=== PATIENT | male | born 1975 | race African-American/Black ===

== ENCOUNTER 2019-05-04 16:18 | Inpatient (IN) | payer OTHER ==
[2019-05-04 22:07] VITALS: BMI 22.8
--- NOTE | 2019-05-05 01:00 | HP ---
COWS - Scale Resting Pulse: 0= [place] 80 or Below Sweatin= No chills or Flushing Restless Observation: 0= Sits Still Pupil Size: 0= Normal to Room Light Bone or Joint Aches: 1= Mild Discomfort Runny Nose/ Eye Tearin= None GI Upset > 30mins: 0= None Tremor Observation: 0= None Yawning Observation: 0= None Anxiety or Irritability: 1=Feels Anxious/Irritable Goose Flesh Skin: 0=Smooth Skin COWS Score: 2 CIWA Score Nausea/Vomitin-No Nausea/No Vomiting Muscle Tremors: None Anxiety: 1-Mildly Anxious Agitation: 1-Slight > Activity Paroxysmal Sweats: No Perspiration Orientation: 0-Oriented Tacttile Disturbances: 0-None Auditory Disturbances: 0-None Visual Disturbances: 0-None Headache: 0-None Present CIWA-Ar Total Score: 2 - Admission Criteria OASAS Guidelines: Admission for Medically Managed Detox: Requires at least one of the followin. CIWA greater than 12 2. Seizures within the past 24 hours 3. Delirium tremens within the past 24 hours 4. Hallucinations within the past 24 hours 5. Acute intervention needed for co occurring medical disorder 6. Acute intervention needed for co occurring psychiatric disorder 7. Severe withdrawal that cannot be handled at a lower level of care (continued vomiting, continued diarrhea, abnormal vital signs) requiring intravenous medication and/or fluids 8. Admission ROS [facility] Chief Complaint: Here to get off heroin and k-2. Allergies/Adverse Reactions: Allergies Allergy/AdvReac Type Severity Reaction Status Date / Time No Known Allergies Allergy Verified 05/04/19 21:56 History of Present Illness: 44 yo presents with request for detox from heroin, K-2, and alcohol. Alcohol use began at age 16. States current use is 1 pint liquor and 1 40 oz beer daily. K-2 use began at age 43. States uses daily Heroin use began at age 43. Current use x 7 months. Current use 1-2 bags daily. Nasal Patient COWS & CIWA do not meet eligibility requirements for admission to detox. Patient is eligible for rehab, based on admission history. Nicotine use began at age 16. Current smokes 1/2 PPD. Denies seizures, blackouts, overdoses. PMHx: Fx foot 4 years ago w/ ORIF; MHHx: Depression. Insomnia. Denies thoughts of harming self or others. Does not see a MH Provider. Patient Name: Sean Brennan Date: 1975 Address: [address] [place] [address] Sex: Male Rx Written Rx Dispensed Drug Quantity Days Supply Prescriber Name 05/25/2018 05/26/2018 chlordiazepoxide 25 mg capsule 26 5 Shayne Murphy) Search Terms: Sean Brennan, 1975 Search Date: 05/05/2019 12:59:55 AM States Searched: [place], [place], [place], [place], [place], [place], [place], [place] The Drug Utilization Report below displays the controlled substance prescriptions, if any, that were dispensed in the indicated state(s). The information displayed on this report is compiled from requests submitted to other states' PMPs, and accurately reflects the information as returned by them. Blank segal indicate data not provided by other state. This report was requested by: Sarai Wakefield | Reference #: [id number] Exam Limitations: No Limitations - Ebola screening Have you traveled outside of the country in the last 21 days: No Have you had contact with anyone from an Ebola affected area: No Have you been sick,other than usual withdrawal symptoms: No (Denies recent exposure to measles) Do you have a fever: No - Review of Systems Constitutional: Changes in sleep (Difficulty falling and staying asleep) EENT: reports: Dental Problems (cavities and broken teeth. Chews and swallows ok.) Respiratory: reports: No Symptoms reported Cardiac: reports: Chest Pain (Intermittent chest pain x 2 years - evaluated w/o any findings.) GI: reports: No Symptoms Reported : reports: No Symptoms Reported Musculoskeletal: reports: Back Pain (Chronic low back achy/pins and needle pain x years. "8". Increases w/ sleeping. Improves with - states 'unknown') Integumentary: reports: No Symptoms Reported Neuro: reports: No Symptoms reported Endocrine: reports: No Symptoms Reported Hematology: reports: No Symptoms Reported Psychiatric: reports: Judgement Intact, Orientated x3, Agitated, Anxious, Depressed (Denies thoughts of harming self or others.) Patient History - PPD History Previous Implant?: No Documented Results: Negative w/o proof Implanted On Prior [facility] Admission?: No PPD to be Administered?: Yes - Smoking Cessation Smoking history: Current every day smoker Have you smoked in the past 12 months: No Aproximately how many cigarettes per day: 10 Hx Chewing Tobacco Use: No Initiated information on smoking cessation: Yes 'Breaking Loose' booklet given: 05/05/19 - Substance & Tx. History Hx Alcohol Use: Yes Hx Substance Use: Yes Substance Use Type: Alcohol, Cocaine, Heroin Hx Substance Use Treatment: Yes (detox, rehab ) - Substances abused Heroin Substance route: Inhalation Frequency: 3-6 times per week Amount used: 1-2 bags/day Age of first use: 16 Date of last use: 05/03/19 K2/Spice Substance route: Smoking Frequency: Daily Amount used: 10 blunts/day Age of first use: 43 Date of last use: 05/04/19 Alcohol Substance route: Oral Frequency: Daily Amount used: 1 40 ounce, 1 pint Age of first use: 16 Date of last use: 05/03/19 Admission Physical Exam S - Vital Signs Vital Signs: Vital Signs - 24 hr 05/04/19 05/04/19 21:59 22:57 Temperature 97.1 F L 97.1 F L Pulse Rate 49 L 49 L Respiratory 16 16 Rate Blood Pressure 112/70 112/70 - Physical General Appearance: Yes: Anxious HEENTM: Yes: EOMI, Hearing grossly Normal, Normocephalic, Normal Voice, MAXIMINO ( Pupils = 2 mm), Pharynx Normal Respiratory: Yes: Lungs Clear, Normal Breath Sounds, No Respiratory Distress Neck: Yes: No masses,lesions,Nodules, Supple Breast: Yes: Breast Exam Deferred Cardiology: Yes: Regular Rhythm, S1, S2, Bradycardia (HR: 46. Denies SOB. No edema.) Abdominal: Yes: Non Tender, Flat, Soft, Increased Bowel Sounds Genitourinary: Yes: Within Normal Limits Back: Yes: Normal Inspection Musculoskeletal: Yes: full range of Motion, Gait Steady Extremities: Yes: Normal Capillary Refill, Normal Range of Motion Neurological: Yes: manager cardiovascular II-XII NML intact, Fully Oriented, Alert, Motor Strength 5/5, Normal Response Integumentary: Yes: Normal Color, Warm, Other (Thickened, moist tissues between toes (L) foot w/ musty odor. Dry, cracked skin (R) foot and toes.) Lymphatic: Yes: Within Normal Limits - Diagnostic (1) History of foot fracture Current Visit: Yes Status: Chronic (2) Alcohol use disorder Current Visit: Yes Status: Chronic (3) Cocaine abuse Current Visit: Yes Status: Chronic (4) Uncomplicated opioid abuse Current Visit: Yes Status: Chronic (5) Tinea pedis Current Visit: Yes Status: Chronic Qualifiers: Laterality: bilateral Qualified Code(s): B35.3 - Tinea pedis (6) Bradycardia Current Visit: Yes Status: Chronic (7) Nicotine dependence, uncomplicated Current Visit: Yes Status: Chronic Qualifiers: Nicotine product type: cigarettes Qualified Code(s): F17.210 - Nicotine dependence, cigarettes, uncomplicated (8) Insomnia Current Visit: Yes Status: Chronic Qualifiers: Insomnia type: unspecified Qualified Code(s): G47.00 - Insomnia, unspecified Cleared for Admission [facility] - Detox or Rehab Claeared for Rehab Admission: Yes Breathalyzer - Breathalyzer Breathalyzer: 0 Urine Drug Screen - Test Device Lot number: [id number] Expiration date: 02/24/21 - Control Is test valid?: Yes - Results Drug screen NEGATIVE: No Urine drug screen results: THC-Marijuana, MECHE-Cocaine, MOP-Opiates Inpatient Rehab Admission - Rehab Decision to Admit Inpatient rehab admission?: Yes - Initial Determination Are CD services needed?: Yes Free of communicable disease: Yes Not in need of hospitalization: Yes - Rehab Admission Criteria Previous failed treatment: Yes Poor recovery environment: Yes Comorbidities: Yes Lacks judgement: No Patient is meeting Inpatient Rehab admission criteria:: Yes
[2019-05-05] MEDS ORDERED: IBUPROFEN 400 MG TABLET (FP) PO PRN (01:33)
[2019-05-05] MEDS ORDERED: P-EPHED 60MG/TRIPROLIDI 2.5MG TABLET PO PRN (01:33)
[2019-05-05] MEDS ORDERED: guaiFENesin 200 MG/10 ML 10 ML UNIT-DOSE CUPS PO PRN (01:33)
[2019-05-05] MEDS ORDERED: LOPERAMIDE HCL 2 MG CAPSULE PO PRN (01:33)
[2019-05-05] MEDS ORDERED: MAGNESIUM HYDROX 2400MG/30ML ORAL SUSPENSION 30 ML CUP PO PRN (01:33)
[2019-05-05] MEDS ORDERED: MENTHOL/PHENOL 1 EACH UD MM PRN (01:33)
[2019-05-05] MEDS ORDERED: MAG HYDROX/AL HYDROX/SIMETH 30 ML UNIT-DOSE CUP PO PRN (01:33)
[2019-05-05] MEDS ORDERED: MAGNESIUM CITRATE 300 ML BOTTLE PO PRN (01:33)
[2019-05-05] MEDS ORDERED: ACETAMINOPHEN 325 MG TABLET (FP) PO PRN (01:33)
[2019-05-05] MEDS ORDERED: cloNIDine HCL 0.1 MG TABLET PO PRN (01:36)
[2019-05-05] MEDS: QUEtiapine FUMARATE 50 MG TABLET PO SCH ×2 (03:54→21:45)
[2019-05-05] MEDS: TOLNAFTATE 1% CREAM 15 GM TUBE TP SCH ×2 (11:01→21:44)
[2019-05-05] MEDS: PRENATAL VITAMINS W/ FOLIC ACID TABLET (FP) PO SCH (11:01)
[2019-05-05] MEDS: NICOTINE 14 MG/24 HOURS TOPICAL PATCH TD SCH (11:03)
[2019-05-05 12:21] LABS: HEMATOCRIT 46.3 % (35.4-49); HEMOGLOBIN 15.8 GM/dL (11.7-16.9); MCH 30.4 pg (25.7-33.7); MCHC 34.1 g/dl (32.0-35.9); MEAN CELL VOLUME 89.3 fl (80-96); MEAN PLT VOLUME 10.1 fl (7.5-11.1); PLATELET COUNT 122 K/MM3 (134-434); RBC 5.19 M/mm3 (4.00-5.60); RDW 13.4 % (11.9-15.9); WHITE BLOOD COUNT 4.5 K/mm3 (4.0-10.0)
[2019-05-05 12:40] LABS: PH,URINE 7.5 (5.0-8.0); URINE APPEARANCE CLOUDY; URINE BILIRUBIN NEGATIVE (NEGATIVE); URINE COLOR YELLOW; URINE GLUCOSE (UA) NEGATIVE (NEGATIVE); URINE KETONE NEGATIVE (NEGATIVE); URINE LEUK ESTERASE NEGATIVE (NEGATIVE); URINE NITRITE NEGATIVE (NEGATIVE); URINE PROTEIN NEGATIVE (NEGATIVE); URINE UROBILINOGEN 0.2 mg/dL (0.2-1.0)
[2019-05-05 12:58] LABS: ALBUMIN 3.6 g/dl (3.4-5.0); BILIRUBIN,TOTAL 0.4 mg/dL (0.2-1); BLOOD UREA NITROGEN 10.3 mg/dL (7-18); CALCIUM 9.1 mg/dL (8.5-10.1); TOT PROT 6.7 g/dl (6.4-8.2)
--- NOTE | 2019-05-05 14:34 | EKG ---
Test Reason : Blood Pressure : / mmHG Vent. Rate : 044 BPM Atrial Rate : 044 BPM P-R Int : 130 ms QRS Dur : 084 ms QT Int : 466 ms P-R-T Axes : 044 030 031 degrees QTc Int : 398 ms MARKED SINUS BRADYCARDIA ABNORMAL ECG NO PREVIOUS ECGS AVAILABLE Confirmed by Robin Drake ([id number]) on 05/05/2019 2:34:14 PM Referred By: Confirmed By:Robin Drake
[2019-05-05] MEDS: THIAMINE HCL 100 MG TABLET (FP) PO SCH (21:45)
--- NOTE | 2019-05-06 10:21 | CONSULT ---
[facility] Psychiatric Consult - Data Date of interview: 05/06/19 Admission source: Self-referred Identifying data: Mr Brennan is a 44 years old single Black male, father of 4 children, unemployed with no source of income, homeless seeking rehab treatment for alcohol, opioid and synthetic cannabis Substance Abuse History: Reports history of alcohol, heroin and k2 use. Refer to addiction counselor's summary for further information Medical History: Significant for history of orthosurgery for fracture foot 4-6 years ago. Smokes 10 cigarettes daily Psychiatric History: Denies history of previous psychiatric treatment. However, reports sleeping poorly. 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 No service Additional Comment: Reports history of multiple misdemeanor arrests. Denies being on probation at present Mental Status Exam - Mental Status Exam Alert and Oriented to: Time, Place, Person Cognitive Function: Fair Patient Appearance: Well Groomed Mood: Depressed (mildly) Patient Behavior: Cooperative Speech Pattern: Clear Voice Loudness: Normal Thought Process: Flight of Ideas Thought Disorder: Not Present Hallucinations: Denies Suicidal Ideation: Denies Homicidal Ideation: Denies Insight/Judgement: Poor Sleep: Well Appetite: Good Psychiatric Findings - Problem List ([place] 1, 2,3) (1) Substance induced mood disorder Current Visit: Yes Status: Acute (2) Substance-induced sleep disorder Current Visit: Yes Status: Acute (3) Alcohol dependence Current Visit: Yes Status: Acute (4) Opioid dependence Current Visit: Yes Status: Acute (5) Cannabis dependence Current Visit: Yes Status: Acute (6) Nicotine dependence Current Visit: Yes Status: Chronic (7) History of foot fracture Current Visit: Yes Status: Resolved - Initial Treatment Plan Initial Treatment Plan: 1) Continue Melatonin 5 mg po HS prn for insomnia. 2) Continue inpatient detoxification
[2019-05-06] MEDS: TOLNAFTATE 1% CREAM 15 GM TUBE TP SCH ×2 (10:47→21:35)
[2019-05-06] MEDS: PRENATAL VITAMINS W/ FOLIC ACID TABLET (FP) PO SCH (10:47)
[2019-05-06] MEDS: NICOTINE 14 MG/24 HOURS TOPICAL PATCH TD SCH (10:47)
[2019-05-06] MEDS: NICOTINE POLACRILEX 2 MG GUM BC PRN (17:47)
[2019-05-06] MEDS: MELATONIN 5 MG TABLETS PO PRN (21:33)
[2019-05-06] MEDS: QUEtiapine FUMARATE 50 MG TABLET PO SCH (21:33)
[2019-05-06] MEDS: NAPROXEN 500 MG TABLET (FP) PO PRN (21:34)
[2019-05-06] MEDS: THIAMINE HCL 100 MG TABLET (FP) PO SCH (21:34)
[2019-05-07] MEDS: PRENATAL VITAMINS W/ FOLIC ACID TABLET (FP) PO SCH (10:27)
[2019-05-07] MEDS: NICOTINE 14 MG/24 HOURS TOPICAL PATCH TD SCH (10:28)
[2019-05-07] MEDS: TOLNAFTATE 1% CREAM 15 GM TUBE TP SCH ×2 (10:29→22:03)
[2019-05-07] MEDS: NICOTINE POLACRILEX 2 MG GUM BC PRN ×2 (19:33→22:13)
[2019-05-07] MEDS: NAPROXEN 500 MG TABLET (FP) PO PRN (21:25)
[2019-05-07] MEDS: QUEtiapine FUMARATE 50 MG TABLET PO SCH (21:25)
[2019-05-07] MEDS: THIAMINE HCL 100 MG TABLET (FP) PO SCH (21:25)
[2019-05-07] MEDS: MELATONIN 5 MG TABLETS PO PRN (21:25)
[2019-05-08] MEDS: NICOTINE 14 MG/24 HOURS TOPICAL PATCH TD SCH (10:26)
[2019-05-08] MEDS: PRENATAL VITAMINS W/ FOLIC ACID TABLET (FP) PO SCH (10:26)
[2019-05-08] MEDS: TOLNAFTATE 1% CREAM 15 GM TUBE TP SCH ×2 (10:27→21:45)
[2019-05-08] MEDS: THIAMINE HCL 100 MG TABLET (FP) PO SCH (21:45)
[2019-05-08] MEDS: QUEtiapine FUMARATE 50 MG TABLET PO SCH (21:45)
[2019-05-08] MEDS: MELATONIN 5 MG TABLETS PO PRN (21:45)
[2019-05-09] MEDS: PRENATAL VITAMINS W/ FOLIC ACID TABLET (FP) PO SCH (10:17)
[2019-05-09] MEDS: NICOTINE 14 MG/24 HOURS TOPICAL PATCH TD SCH (10:18)
[2019-05-09] MEDS: TOLNAFTATE 1% CREAM 15 GM TUBE TP SCH ×2 (10:18→23:24)
[2019-05-09] MEDS: NICOTINE POLACRILEX 2 MG GUM BC PRN (10:19)
[2019-05-09] MEDS: THIAMINE HCL 100 MG TABLET (FP) PO SCH (22:06)
[2019-05-09] MEDS: QUEtiapine FUMARATE 50 MG TABLET PO SCH (22:06)
[2019-05-09] MEDS: MELATONIN 5 MG TABLETS PO PRN (22:07)
[2019-05-10] MEDS: NICOTINE 14 MG/24 HOURS TOPICAL PATCH TD SCH (10:32)
[2019-05-10] MEDS: TOLNAFTATE 1% CREAM 15 GM TUBE TP SCH ×2 (10:32→21:46)
[2019-05-10] MEDS: NICOTINE POLACRILEX 2 MG GUM BC PRN ×2 (10:32→18:40)
[2019-05-10] MEDS: PRENATAL VITAMINS W/ FOLIC ACID TABLET (FP) PO SCH (10:32)
[2019-05-10] MEDS: THIAMINE HCL 100 MG TABLET (FP) PO SCH (21:46)
[2019-05-10] MEDS: QUEtiapine FUMARATE 50 MG TABLET PO SCH (21:46)
[2019-05-10] MEDS: MELATONIN 5 MG TABLETS PO PRN (21:46)
[2019-05-11] MEDS: NAPROXEN 500 MG TABLET (FP) PO PRN (09:27)
[2019-05-11] MEDS: NICOTINE 14 MG/24 HOURS TOPICAL PATCH TD SCH (09:28)
[2019-05-11] MEDS: PRENATAL VITAMINS W/ FOLIC ACID TABLET (FP) PO SCH (09:29)
[2019-05-11] MEDS: TOLNAFTATE 1% CREAM 15 GM TUBE TP SCH ×2 (10:36→21:33)
--- NOTE | 2019-05-11 16:09 | PN ---
[facility] Progress Note Note: Met with patient today Re:MAT. pt declined stating he is not ready for treatment with MAT-suboxone. Vital Signs - 24 hr 05/11/19 05/11/19 05/11/19 00:30 03:30 06:49 Temperature 97.6 F Pulse Rate 52 L Respiratory 18 18 16 Rate Blood Pressure 100/58 L Laboratory Tests 05/05/19 05/05/19 05/05/19 08:10 08:10 08:10 WBC 4.5 RBC 5.19 Hgb 15.8 Hct 46.3 MCV 89.3 MCH 30.4 MCHC 34.1 RDW 13.4 Plt Count 122 L MPV 10.1 Sodium 142 Potassium 4.0 Chloride 108 H Carbon Dioxide 27 Anion Gap 6 L BUN 10.3 Creatinine 1.0 Est GFR (CKD-EPI)AfAm 106.36 Est GFR (CKD-EPI)NonAf 91.77 Random Glucose 70 L Calcium 9.1 Total Bilirubin 0.4 AST 26 ALT 28 Alkaline Phosphatase 57 Total Protein 6.7 Albumin 3.6 Urine Color Urine Appearance Urine pH Ur Specific [place] Urine Protein Urine Glucose (UA) Urine Ketones Urine Blood Urine Nitrite Urine Bilirubin Urine Urobilinogen Ur Leukocyte Esterase RPR Titer Nonreactive 05/05/19 09:10 WBC RBC Hgb Hct MCV MCH MCHC RDW Plt Count MPV Sodium Potassium Chloride Carbon Dioxide Anion Gap BUN Creatinine Est GFR (CKD-EPI)AfAm Est GFR (CKD-EPI)NonAf Random Glucose Calcium Total Bilirubin AST ALT Alkaline Phosphatase Total Protein Albumin Urine Color Yellow Urine Appearance Cloudy Urine pH 7.5 Ur Specific [place] 1.018 Urine Protein Negative Urine Glucose (UA) Negative Urine Ketones Negative Urine Blood Negative Urine Nitrite Negative Urine Bilirubin Negative Urine Urobilinogen 0.2 Ur Leukocyte Esterase Negative RPR Titer Plan:Pt instructed to inform provider if and when ready while here in rehab.
[2019-05-11] MEDS: NICOTINE POLACRILEX 2 MG GUM BC PRN (18:45)
[2019-05-11] MEDS: QUEtiapine FUMARATE 50 MG TABLET PO SCH (21:32)
[2019-05-11] MEDS: THIAMINE HCL 100 MG TABLET (FP) PO SCH (21:32)
[2019-05-11] MEDS: MELATONIN 5 MG TABLETS PO PRN (21:32)
[2019-05-12] MEDS: PRENATAL VITAMINS W/ FOLIC ACID TABLET (FP) PO SCH (10:07)
[2019-05-12] MEDS: NICOTINE POLACRILEX 2 MG GUM BC PRN (10:07)
[2019-05-12] MEDS: TOLNAFTATE 1% CREAM 15 GM TUBE TP SCH ×2 (10:07→21:36)
[2019-05-12] MEDS: NICOTINE 14 MG/24 HOURS TOPICAL PATCH TD SCH (10:07)
[2019-05-12] MEDS: THIAMINE HCL 100 MG TABLET (FP) PO SCH (21:35)
[2019-05-12] MEDS: QUEtiapine FUMARATE 50 MG TABLET PO SCH (21:36)
[2019-05-13] MEDS: NICOTINE 14 MG/24 HOURS TOPICAL PATCH TD SCH (10:30)
[2019-05-13] MEDS: PRENATAL VITAMINS W/ FOLIC ACID TABLET (FP) PO SCH (10:30)
[2019-05-13] MEDS: TOLNAFTATE 1% CREAM 15 GM TUBE TP SCH ×2 (10:31→21:39)
[2019-05-13] MEDS: NAPROXEN 500 MG TABLET (FP) PO PRN ×2 (10:31→21:38)
[2019-05-13] MEDS: QUEtiapine FUMARATE 50 MG TABLET PO SCH (21:38)
[2019-05-13] MEDS: THIAMINE HCL 100 MG TABLET (FP) PO SCH (21:38)
[2019-05-13] MEDS: MELATONIN 5 MG TABLETS PO PRN (21:38)
[2019-05-13] MEDS: hydrOXYzine PAMOATE 50 MG CAPSULE (FP) PO PRN (21:38)
[2019-05-14] MEDS: PRENATAL VITAMINS W/ FOLIC ACID TABLET (FP) PO SCH (10:23)
[2019-05-14] MEDS: TOLNAFTATE 1% CREAM 15 GM TUBE TP SCH ×2 (10:23→21:44)
[2019-05-14] MEDS: NICOTINE 14 MG/24 HOURS TOPICAL PATCH TD SCH (10:23)
[2019-05-14] MEDS: NICOTINE POLACRILEX 2 MG GUM BC PRN (10:24)
--- NOTE | 2019-05-14 15:14 | PN ---
S Progress Note Note: Nurse reports pt requesting Catscan of his head. Pt was asked by technical writer and editor why he needs catscan and pt responded "i don't know what's wrong with my head". Pt was educated on indications for catscan testings. Pt denies any form injury. Pt also requesting increased seroquel dose and wants to speak to psych on how he is feeling in his head. Pt was very vague and unable to express the feelings but also c/o intermittent sleep. However, pt is alert o x 3, calm and communicates pleasantly. denies s/h/i. Vital Signs - 24 hr 05/14/19 05/14/19 03:30 07:07 Temperature 97.4 F L Pulse Rate 54 L Respiratory 18 18 Rate Blood Pressure 114/62 A:Sleeping problems hx insomnia hx depression plan:psych re-eval today re-ordered.
--- NOTE | 2019-05-14 16:04 | PN ---
Psychiatric Progress Note Vital Signs: Vital Signs Period Temp Pulse Resp BP Sys/Olivier Pulse Ox Last 24 Hr 97.4 F 54 18-18 114/62 Date of Session: 05/14/19 Chief Complaint:: " I'm not sleeping well." HPI: Patient admitted to [facility] rehab treatment for alcohol, opioid and synthetic cannabis. Patient reports difficulty sleeping. ROS: Patient is coherent, alert and oriented X3. Current Medications: Active Medications Generic Name Dose Route Start Last Admin Trade Name Freq PRN Reason Stop Dose Admin Acetaminophen 650 mg 05/05/19 01:33 Tylenol - PO Q4H PRN FEVER Al Hydroxide/Mg Hydroxide 30 ml 05/05/19 01:33 Mylanta Oral Suspension - PO Q6H PRN DYSPEPSIA Clonidine 0.1 mg 05/05/19 01:36 Catapres - PO Q8H PRN WITHDRAWAL(CONT SUBST) Eucalyptus/Menthol/Phenol/Sorbitol 1 each 05/05/19 01:33 Cepastat Lozenge - MM Q4H PRN SORE THROAT Guaifenesin 10 ml 05/05/19 01:33 Robitussin - PO Q6H PRN COUGH Hydroxyzine Pamoate 50 mg 05/05/19 01:33 05/13/19 21:38 Vistaril - PO 50 mg Q4H PRN Administration AGITATION Loperamide HCl 4 mg 05/05/19 01:33 Imodium - PO Q6H PRN DIARRHEA Magnesium Citrate 300 ml 05/05/19 01:33 Citroma - PO Q48H PRN CONSTIPATION Magnesium Hydroxide 30 ml 05/05/19 01:33 Milk Of Magnesia - PO DAILY PRN CONSTIPATION Melatonin 5 mg 05/05/19 22:00 05/13/19 21:38 Melatonin PO 5 mg HS PRN Administration INSOMNIA Naproxen 500 mg 05/05/19 02:12 05/13/19 21:38 Naprosyn - PO 500 mg BID PRN Administration PAIN LEVEL 6-10 Nicotine 14 mg 05/05/19 10:00 05/14/19 10:23 Nicoderm Patch - TD Not Given DAILY BRIANA Nicotine Polacrilex 2 mg 05/05/19 01:33 05/14/19 10:24 Nicorette Gum - BC 2 mg Q2H PRN Administration NICOTINE REPLACEMENT RX Multivit/Folic Acid/Iron 1 tab 05/05/19 10:00 05/14/19 10:23 Vitamins ([facility]) - PO 1 tab DAILY BRIANA Administration Pseudoephedrine/Triprolidine 1 combo 05/05/19 01:33 Actifed - PO TID PRN NASAL CONGESTION Quetiapine Fumarate 50 mg 05/05/19 01:39 05/13/19 21:38 Seroquel - PO 50 mg HS BRIANA Administration Thiamine HCl 100 mg 05/05/19 22:00 05/13/19 21:38 Vitamin B1 - PO 100 mg HS BRIANA Administration Tolnaftate 1 applic 05/05/19 10:00 05/14/19 10:23 Tinactin 1% Cream - TP Not Given BID BRIANA Medication(s) Change(s): Yes. Will d/c seroquel 50mg HS. Will order seroquel 100mg HS. Benefits and side effects discussed. Verbal consent given. Current Side Effect: No Lab tests ordered: No Lab tests reviewed: Yes Provider note:: Patient reports difficulty sleeping. Dr. Russell's note read and appreciated. Patient is currently receiving seroquel 50mg for insomnia but reports difficulty sleeping through the night. Will d/c seroquel 50mg HS and will order seroquel 100mg HS. Patient educated on the importance of sleep hygiene. Benefits and side effects discussed. Verbal consent given. Total face to face time:: 25 Mental Status Exam - Mental Status Exam Alert and Oriented to: Time, Place, Person Cognitive Function: Good Patient Appearance: Well Groomed Mood: Withdrawn Affect: Mood Congruent Patient Behavior: Fatigued (Patient report poor sleep.) Speech Pattern: Appropriate Voice Loudness: Normal Thought Process: Goal Oriented Thought Disorder: Not Present Hallucinations: Denies Suicidal Ideation: Denies Homicidal Ideation: Denies Insight/Judgement: Poor Sleep: Poorly Appetite: Fair Muscle strength/Tone: Normal Gait/Station: Normal Psychiatric Treatment Plan - Problem List (1) Nicotine dependence Current Visit: Yes (2) Alcohol dependence Current Visit: Yes (3) Cannabis dependence Current Visit: Yes (4) Opioid dependence Current Visit: Yes (5) Substance induced mood disorder Current Visit: Yes (6) Substance-induced sleep disorder Current Visit: Yes
[2019-05-14] MEDS: THIAMINE HCL 100 MG TABLET (FP) PO SCH (21:43)
[2019-05-14] MEDS: NAPROXEN 500 MG TABLET (FP) PO PRN (21:43)
[2019-05-14] MEDS: hydrOXYzine PAMOATE 50 MG CAPSULE (FP) PO PRN (21:43)
[2019-05-14] MEDS: QUEtiapine FUMARATE 100 MG TABLET (FP) PO SCH (21:44)
[2019-05-14] MEDS: MELATONIN 5 MG TABLETS PO PRN (21:45)
[2019-05-15] MEDS: PRENATAL VITAMINS W/ FOLIC ACID TABLET (FP) PO SCH (10:14)
[2019-05-15] MEDS: NICOTINE 14 MG/24 HOURS TOPICAL PATCH TD SCH (10:14)
[2019-05-15] MEDS: TOLNAFTATE 1% CREAM 15 GM TUBE TP SCH ×2 (10:14→21:28)
[2019-05-15] MEDS: NICOTINE POLACRILEX 2 MG GUM BC PRN ×2 (10:14→19:16)
--- NOTE | 2019-05-15 14:55 | PN ---
[facility] Progress Note Note: PT WAS SEEN AGAIN TODAY AND SPOKEN TO RE:BENEFIT OF GIVEN SUBOXONE A TRY AND FOLLOW UP REFERRAL TO [facility] WITH HIS COUNSELOR PRESENT. PT IS STILL HESITANT TO START SUBOXONE STATING "I WANT TO STOP EVERYTHING AND I DON'T LIKE GOING TO THE PROGRAMS BECAUSE THEY TALK ABOUT THE SAME THING". Vital Signs - 24 hr 05/15/19 05/15/19 05/15/19 00:30 03:30 06:44 Temperature 97.3 F L Pulse Rate 62 Respiratory 18 18 16 Rate Blood Pressure 100/59 L Laboratory Tests 05/05/19 05/05/19 05/05/19 08:10 08:10 08:10 WBC 4.5 RBC 5.19 Hgb 15.8 Hct 46.3 MCV 89.3 MCH 30.4 MCHC 34.1 RDW 13.4 Plt Count 122 L MPV 10.1 Sodium 142 Potassium 4.0 Chloride 108 H Carbon Dioxide 27 Anion Gap 6 L BUN 10.3 Creatinine 1.0 Est GFR (CKD-EPI)AfAm 106.36 Est GFR (CKD-EPI)NonAf 91.77 Random Glucose 70 L Calcium 9.1 Total Bilirubin 0.4 AST 26 ALT 28 Alkaline Phosphatase 57 Total Protein 6.7 Albumin 3.6 Urine Color Urine Appearance Urine pH Ur Specific [place] Urine Protein Urine Glucose (UA) Urine Ketones Urine Blood Urine Nitrite Urine Bilirubin Urine Urobilinogen Ur Leukocyte Esterase RPR Titer Nonreactive 05/05/19 09:10 WBC RBC Hgb Hct MCV MCH MCHC RDW Plt Count MPV Sodium Potassium Chloride Carbon Dioxide Anion Gap BUN Creatinine Est GFR (CKD-EPI)AfAm Est GFR (CKD-EPI)NonAf Random Glucose Calcium Total Bilirubin AST ALT Alkaline Phosphatase Total Protein Albumin Urine Color Yellow Urine Appearance Cloudy Urine pH 7.5 Ur Specific [place] 1.018 Urine Protein Negative Urine Glucose (UA) Negative Urine Ketones Negative Urine Blood Negative Urine Nitrite Negative Urine Bilirubin Negative Urine Urobilinogen 0.2 Ur Leukocyte Esterase Negative RPR Titer ALERT O X 3 OOB AMBULATES WITH STEADY GAIT NAD A:OUD INDECISIVENESS PLAN:D/W PT WITH PAYABLE MANAGER, DR. HOFFMAN TO FOLLOW UP AT [facility] FOR AFTERCARE ON 05/18/19. REMINDED PT SUBOXONE OR METHADONE MAT AVAILABLE AT [facility] OPD IF CHANGE HIS MIND AFTER DISCHARGE.
[2019-05-15] MEDS: THIAMINE HCL 100 MG TABLET (FP) PO SCH (21:27)
[2019-05-15] MEDS: MELATONIN 5 MG TABLETS PO PRN (21:28)
[2019-05-15] MEDS: QUEtiapine FUMARATE 100 MG TABLET (FP) PO SCH (21:28)
[2019-05-15] MEDS: hydrOXYzine PAMOATE 50 MG CAPSULE (FP) PO PRN (21:29)
[2019-05-16] MEDS: PRENATAL VITAMINS W/ FOLIC ACID TABLET (FP) PO SCH (09:43)
[2019-05-16] MEDS: NICOTINE 14 MG/24 HOURS TOPICAL PATCH TD SCH (09:43)
[2019-05-16] MEDS: TOLNAFTATE 1% CREAM 15 GM TUBE TP SCH ×2 (09:43→21:15)
[2019-05-16] MEDS: NICOTINE POLACRILEX 2 MG GUM BC PRN (09:44)
[2019-05-16] MEDS: THIAMINE HCL 100 MG TABLET (FP) PO SCH (21:14)
[2019-05-16] MEDS: MELATONIN 5 MG TABLETS PO PRN (21:14)
[2019-05-16] MEDS: QUEtiapine FUMARATE 100 MG TABLET (FP) PO SCH (21:14)
[2019-05-16] MEDS: hydrOXYzine PAMOATE 50 MG CAPSULE (FP) PO PRN (21:18)
[2019-05-17] MEDS: TOLNAFTATE 1% CREAM 15 GM TUBE TP SCH ×2 (10:09→21:28)
[2019-05-17] MEDS: NICOTINE POLACRILEX 2 MG GUM BC PRN (10:09)
[2019-05-17] MEDS: NICOTINE 14 MG/24 HOURS TOPICAL PATCH TD SCH (10:09)
[2019-05-17] MEDS: PRENATAL VITAMINS W/ FOLIC ACID TABLET (FP) PO SCH (10:09)
[2019-05-17] MEDS: THIAMINE HCL 100 MG TABLET (FP) PO SCH (21:27)
[2019-05-17] MEDS: QUEtiapine FUMARATE 100 MG TABLET (FP) PO SCH (21:27)
[2019-05-17] MEDS: hydrOXYzine PAMOATE 50 MG CAPSULE (FP) PO PRN (21:28)
[2019-05-17] MEDS: MELATONIN 5 MG TABLETS PO PRN (21:29)
--- NOTE | 2019-05-18 06:46 | PN ---
[facility] Progress Note Note: Patient is scheduled for discharge today. Script for 30 days supply of Seroquel 100 mg/hs is electronically transmitted to [facility] Pharmacy at [address] [place] [address] Sara, [place] [address]
[2019-05-18 07:17] VITALS: BP 90/52; PULSE 59; TEMP 97.7
[2019-05-18] MEDS: PRENATAL VITAMINS W/ FOLIC ACID TABLET (FP) PO SCH (09:12)
[2019-05-18] MEDS: TOLNAFTATE 1% CREAM 15 GM TUBE TP SCH (09:12)
[2019-05-18] MEDS: NICOTINE 14 MG/24 HOURS TOPICAL PATCH TD SCH (09:12)
[2019-05-18] MEDS: NICOTINE POLACRILEX 2 MG GUM BC PRN (09:13)
--- NOTE | 2019-05-18 15:57 | PN ---
[facility] Progress Note (SOAP) Subjective: PT ADMITTED ON 05/05/19, COMPLETED REHAB AND DISCHARGED TODAY. PT PARTICIPATED IN GROUPS AND INDIVIDUAL THERAPY WHILE IN REHAB. PT MET WITH HIS COUNSELOR, MS ANA MORTENSENShahramLANCE AND DISCUSSED FURTHER PLANNING AND NEED TO FOLLOW UP WITH MAT AT [facility] AFTER DISCHARGE. PT REPORTS HE HAS NO PCP. PT HAS BEEN REFERRED TO [facility] ON [address] FOR MEDICAL MANAGEMENT NEEDED. PT DENIES S/H/I. Objective: 05/18/19 15:54 ALERT O X 3 AMBULATES WITH STEADY GAIT. Vital Signs - 24 hr 05/18/19 05/18/19 05/18/19 00:30 03:30 07:16 Temperature 97.7 F Pulse Rate 59 L Respiratory 18 18 18 Rate Blood Pressure 90/52 L Laboratory Tests 05/05/19 05/05/19 05/05/19 08:10 08:10 08:10 WBC 4.5 RBC 5.19 Hgb 15.8 Hct 46.3 MCV 89.3 MCH 30.4 MCHC 34.1 RDW 13.4 Plt Count 122 L MPV 10.1 Sodium 142 Potassium 4.0 Chloride 108 H Carbon Dioxide 27 Anion Gap 6 L BUN 10.3 Creatinine 1.0 Est GFR (CKD-EPI)AfAm 106.36 Est GFR (CKD-EPI)NonAf 91.77 Random Glucose 70 L Calcium 9.1 Total Bilirubin 0.4 AST 26 ALT 28 Alkaline Phosphatase 57 Total Protein 6.7 Albumin 3.6 Urine Color Urine Appearance Urine pH Ur Specific [place] Urine Protein Urine Glucose (UA) Urine Ketones Urine Blood Urine Nitrite Urine Bilirubin Urine Urobilinogen Ur Leukocyte Esterase RPR Titer Nonreactive 05/05/19 09:10 WBC RBC Hgb Hct MCV MCH MCHC RDW Plt Count MPV Sodium Potassium Chloride Carbon Dioxide Anion Gap BUN Creatinine Est GFR (CKD-EPI)AfAm Est GFR (CKD-EPI)NonAf Random Glucose Calcium Total Bilirubin AST ALT Alkaline Phosphatase Total Protein Albumin Urine Color Yellow Urine Appearance Cloudy Urine pH 7.5 Ur Specific [place] 1.018 Urine Protein Negative Urine Glucose (UA) Negative Urine Ketones Negative Urine Blood Negative Urine Nitrite Negative Urine Bilirubin Negative Urine Urobilinogen 0.2 Ur Leukocyte Esterase Negative RPR Titer Home Medications Medication Instructions Recorded Quetiapine Fumarate [Seroquel] 100 mg PO HS #30 tablet 05/18/19 Assessment: 05/18/19 15:55 NAD MEDICALLY STABLE [facility] Inpatient Services Medical - Diagnosis (1) Cannabis dependence Status: Chronic (2) Opioid dependence Qualifiers: Substance use status: uncomplicated Qualified Code(s): F11.20 - Opioid dependence, uncomplicated Status: Chronic (3) Nicotine dependence Qualifiers: Nicotine product type: cigarettes Substance use status: uncomplicated Qualified Code(s): F17.210 - Nicotine dependence, cigarettes, uncomplicated Status: Chronic (4) Alcohol dependence Qualifiers: Substance use status: uncomplicated Qualified Code(s): F10.20 - Alcohol dependence, uncomplicated Status: Chronic Initialized on 05/18/19 15:57 - END OF NOTE Plan: FOLLOW UP FOR CD AFTERCARE/MAT AT [facility] TODAY AT 2:00 PM. FOLLOW UP WITH [facility] AT [address] [place] [address] WITHIN 1 WEEK AFTER DISCHARGE.
== END 2019-05-18 11:00 | disposition home or self-care (01) | DRG 772 ==
LOC: YASAS 16:18 → Y5N 05-05 01:43
PROVIDERS: ADMIT Surgery; ATTEND Surgery
PROC: HZ42ZZZ Group Counseling for Substance Abuse Treatment, Cognitive-Behavioral (ICD-10-PCS; principal; 2019-05-05)
DX: F11.20 Opioid dependence, uncomplicated (principal); F10.20 Alcohol dependence, uncomplicated; F12.20 Cannabis dependence, uncomplicated; F17.210 Nicotine dependence, cigarettes, uncomplicated; F19.24 Other psychoactive substance dependence with psychoactive substance-induced mood disorder; F19.282 Other psychoactive substance dependence with psychoactive substance-induced sleep disorder; G47.00 Insomnia, unspecified; R00.1 Bradycardia, unspecified; B35.3 Tinea pedis
CPT/HCPCS: 36415; 80053; 81003; 85027; 86593; 93005; 93010

== ENCOUNTER 2019-12-28 15:00 | Inpatient (IN) | payer OTHER ==
--- NOTE | 2019-12-28 15:28 | BHS.RME ---
Substance Use & Tx History - Substance Use History Opiates (Heroin) Substance amount: 5 bags Frequency of use: Daily Substance route: Inhalation (ex: sniffing or snorting) Date of Last Use: 12/28/19 Cannabis Substance amount: 10 blunts Frequency of use: Daily Substance route: Smoking Date of Last Use: 12/26/19 Cannabis (Synthetic) Substance amount: 1 pouch/bag Frequency of use: Daily Substance route: Smoking Date of Last Use: 12/28/19 Alcohol Substance amount: 40 ounces beer Frequency of use: Daily Substance route: Oral Date of Last Use: 12/27/19 Physical/Psych/Mental Status - Behavior General Behavior: Decreased activity - Cooperativeness Cooperativeness: Cooperative - Thinking Thought Processes: Tight, Goal Directed Thought content: Future oriented - Physical Health Problems Is patient presently having any pain?: No Does patient presently have any injuries (include location): No Does patient currently have a fever: No Is patient : No COWS - Scale Resting Pulse: 0= [place] 80 or Below Sweatin= Chills/Flushing Restless Observation: 0= Sits Still Pupil Size: 0= Normal to Room Light Bone or Joint Aches: 1= Mild Discomfort Runny Nose/ Eye Tearin= Runny Nose/Eyes GI Upset > 30mins: 0= None Tremor Observation: 0= None Yawning Observation: 0= None Anxiety or Irritability: 1=Feels Anxious/Irritable Goose Flesh Skin: 0=Smooth Skin COWS Score: 5 CIWA Nausea/Vomitin-No Nausea/No Vomiting Muscle Tremors: None Anxiety: 1-Mildly Anxious Agitation: 0-Normal Activity Paroxysmal Sweats: No Perspiration Orientation: 0-Oriented Tacttile Disturbances: 0-None Auditory Disturbances: 0-None Visual Disturbances: 1-Very Mild Sensitivity Headache: 0-None Present CIWA-Ar Total Score: 2
[2019-12-28 16:35] VITALS: BMI 20.9
--- NOTE | 2019-12-28 16:51 | HP ---
COWS - Scale Resting Pulse: 0= [place] 80 or Below Sweatin=Flushed/Facial Moisture Restless Observation: 0= Sits Still Pupil Size: 2= Moderately Dilated (Pupils = 4 mm) Bone or Joint Aches: 1= Mild Discomfort Runny Nose/ Eye Tearin= Runny Nose/Eyes GI Upset > 30mins: 1= Stomach Cramp Tremor Observation: 2= Slight Tremor Visible Yawning Observation: 1= 1-2x During Session Anxiety or Irritability: 1=Feels Anxious/Irritable Goose Flesh Skin: 0=Smooth Skin COWS Score: 12 CIWA Score Nausea/Vomitin-No Nausea/No Vomiting Muscle Tremors: 3 Anxiety: 1-Mildly Anxious Agitation: 0-Normal Activity Paroxysmal Sweats: No Perspiration Orientation: 0-Oriented Tacttile Disturbances: 0-None Auditory Disturbances: 0-None Visual Disturbances: 0-None Headache: 4-Moderately Severe CIWA-Ar Total Score: 8 - Admission Criteria OASAS Guidelines: Admission for Medically Managed Detox: Requires at least one of the followin. CIWA greater than 12 2. Seizures within the past 24 hours 3. Delirium tremens within the past 24 hours 4. Hallucinations within the past 24 hours 5. Acute intervention needed for co occurring medical disorder 6. Acute intervention needed for co occurring psychiatric disorder 7. Severe withdrawal that cannot be handled at a lower level of care (continued vomiting, continued diarrhea, abnormal vital signs) requiring intravenous medication and/or fluids 8. Admitting History and Physical - Smoking History Smoking history: Current every day smoker Have you smoked in the past 12 months: No Aproximately how many cigarettes per day: 10 - Alcohol/Substance Use Hx Alcohol Use: Yes Admission [facility] Chief Complaint: Here to be treated to get my life back. Allergies/Adverse Reactions: Allergies Allergy/AdvReac Type Severity Reaction Status Date / Time No Known Allergies Allergy Verified 05/04/19 21:56 History of Present Illness: 44 yo presents with request for detox from heroin, K-2, and alcohol. UTox: + THC/MECHE/MOP VANDANA: 0.0 Alcohol use began at age 16. States current alcohol intake is down to 2 x/wk and down to 1 - 40 oz beer. Heroin use began at age 43. Current use increased to 5 bags daily. Nasal. Last use heroin about 2: 30 pm Cocaine/Crack use began at age 25. Decreased use. Currently uses about once/ week. Marijuana use began at at age 16. Currently smokes 2 blunts/month. K-2 use began at age 43. States uses daily Nicotine use began at age 16. Current smokes 1/2 PPD. Denies seizures, blackouts, overdoses. PMHx: Fx foot 4 years ago w/ ORIF; EK05/05/19: Reviewed - indicated Bradycardia. MHHx: Depression. Insomnia. Denies thoughts of harming self or others. Does not see a MH Provider in the community. SHx: Homeless. Unemployed. Denies lega/ issues. Search Terms: Sean Brennan, 1975 Search Date: 12/28/2019 16:49:24 PM The Drug Utilization Report below displays all of the controlled substance prescriptions, if any, that your patient has filled in the last twelve months. The information displayed on this report is compiled from pharmacy submissions to the Department, and accurately reflects the information as submitted by the pharmacies. This report was requested by: Sarai Wakefield | Reference #: [id number] There are no results for the search terms that you entered. Exam Limitations: No Limitations - Ebola screening Have you traveled outside of the country in the last 21 days: No Have you had contact with anyone from an Ebola affected area: No Have you been sick,other than usual withdrawal symptoms: No Do you have a fever: No - Review of Systems Constitutional: Changes in sleep (Difficulty falling asleep), Weight Stable EENT: reports: Nose Congestion, Dental Problems (Front tooth w/ crack and painful @ "5". Occurs w/ eating.) Respiratory: reports: No Symptoms reported Cardiac: reports: Irregular Heart Rate GI: reports: No Symptoms Reported : reports: No Symptoms Reported Musculoskeletal: reports: Back Pain (Chronic low back throbbing pain. "0" now. Triggered by certain sitting or laying positions.) Integumentary: reports: Other (athletes's foot) Neuro: reports: Headache (Frontal banging headache. "8".), Tremors Endocrine: reports: No Symptoms Reported Hematology: reports: No Symptoms Reported Psychiatric: reports: Judgement Intact, Orientated x3, Agitated, Depressed ( Denies thoughts of harming self or others) Patient History - Patient Medical History Hx Asthma: No Hx Cardiac Disorders: No Hx Diabetes: No Hx Sexually Transmitted Disorders: No Hx Renal Disease (ESRD): No - Patient Surgical History Past Surgical History: Yes Hx Neurologic Surgery: No Hx Cataract Extraction: No Hx Cardiac Surgery: No Hx Breast Surgery: No Hx Breast Biopsy: No Hx Abdominal Surgery: No Hx Appendectomy: No Hx Cholecystectomy: No Hx Genitourinary Surgery: No Hx Section: No Hx Orthopedic Surgery: No - PPD History Previous Implant?: Yes Documented Results: Negative w/o proof (No QFT or PPD documented for 04/2019 admission.) Implanted On Prior [facility] Admission?: No PPD to be Administered?: Yes - Smoking Cessation Smoking history: Current every day smoker Have you smoked in the past 12 months: No Aproximately how many cigarettes per day: 10 Hx Chewing Tobacco Use: No Initiated information on smoking cessation: Yes 'Breaking Loose' booklet given: 12/28/19 - Substance & Tx. History Hx Alcohol Use: Yes Hx Substance Use: Yes Substance Use Type: Alcohol, Cocaine, Heroin, Marijuana Hx Substance Use Treatment: Yes (rehab,) - Substances abused Alcohol Substance route: Oral Frequency: Daily Amount used: 40oz BEER Age of first use: 16 Date of last use: 12/27/19 K2/Spice Substance route: Smoking Frequency: Daily Amount used: 1 BAG Age of first use: 31 Date of last use: 12/28/19 Marijuana/Hashish Substance route: Smoking Frequency: Daily Amount used: 10 BLUNTS Age of first use: 16 Date of last use: 12/25/19 Heroin Substance route: Inhalation Frequency: Daily Amount used: 5 BAGS Age of first use: 31 Date of last use: 12/28/19 Admission Physical Exam S - Vital Signs Vital Signs: Vital Signs - 24 hr 12/28/19 16:33 Temperature 97.4 F L Pulse Rate 53 L Respiratory 18 Rate Blood Pressure 106/63 - Physical General Appearance: Yes: Nourished, Tremorous (FELT), Anxious HEENTM: Yes: EOMI (Jerking movement of eyes on lateral gaze), Hearing grossly Normal, Normocephalic, MAXIMINO (Pupils = 2 mm), Pharynx Normal, Nasal Congestion Respiratory: Yes: Lungs Clear, Normal Breath Sounds, No Respiratory Distress Neck: Yes: No masses,lesions,Nodules, Supple Breast: Yes: Breast Exam Deferred Cardiology: Yes: Regular Rhythm, S1, S2, Bradycardia Abdominal: Yes: Normal Bowel Sounds, Non Tender, Flat, Soft Genitourinary: Yes: Within Normal Limits Back: Yes: Normal Inspection Musculoskeletal: Yes: full range of Motion, Gait Steady Extremities: Yes: Normal Capillary Refill, Tremors (Mild felt) Neurological: Yes: donor services manager II-XII NML intact (Jerking movement of eyes on lateral gaze), Fully Oriented, Alert, Motor Strength 5/5, Normal Response Integumentary: Yes: Normal Color, Warm, Other (Thickened, moist tissues between all toes of (L) foot amd 5th toe of (R) foot. Dry, cracked skin both feet.) Lymphatic: Yes: Within Normal Limits - Diagnostic (1) Opioid dependence with withdrawal Current Visit: Yes Status: Acute (2) Unspecified nystagmus Current Visit: Yes Status: Acute (3) Alcohol use disorder Current Visit: Yes Status: Chronic (4) Bradycardia Current Visit: Yes Status: Chronic (5) Cannabis dependence Current Visit: Yes Status: Chronic (6) Cocaine abuse Current Visit: Yes Status: Chronic (7) Nicotine dependence, uncomplicated Current Visit: Yes Status: Chronic Qualifiers: Nicotine product type: cigarettes Qualified Code(s): F17.210 - Nicotine dependence, cigarettes, uncomplicated (8) Tinea pedis Current Visit: Yes Status: Chronic Qualifiers: Laterality: bilateral Qualified Code(s): B35.3 - Tinea pedis (9) History of foot fracture Current Visit: Yes Status: Resolved (10) Tooth ache Current Visit: Yes Status: Chronic Cleared for Admission [facility] - Detox or Rehab [facility] Level of Care: Medically Managed Detox Regimen/Protocol: Methadone/Librium Claeared for Rehab Admission: No Breathalyzer - Breathalyzer Breathalyzer: 0 Urine Drug Screen - Test Device Lot number: [id number] Expiration date: 09/26/21 - Control Is test valid?: Yes - Results Drug screen NEGATIVE: No Urine drug screen results: THC-Marijuana, MECHE-Cocaine, MOP-Opiates Inpatient Rehab Admission - Rehab Decision to Admit Inpatient rehab admission?: No
[2019-12-28] MEDS ORDERED: BISMUTH SUBSALICYLATE 262 MG/15 ML BTL PO PRN (18:51)
[2019-12-28] MEDS ORDERED: IBUPROFEN 400 MG TABLET (FP) PO PRN (18:51)
[2019-12-28] MEDS ORDERED: MENTHOL/PHENOL 1 EACH UD MM PRN (18:51)
[2019-12-28] MEDS ORDERED: ONDANSETRON *ODT* 4 MG TABLET SL ONE (18:51)
[2019-12-28] MEDS ORDERED: MAGNESIUM HYDROX 2400MG/30ML ORAL SUSPENSION 30 ML CUP PO PRN (18:51)
[2019-12-28] MEDS ORDERED: ACETAMINOPHEN 325 MG TABLET (FP) PO PRN ×2 (18:51)
[2019-12-28] MEDS ORDERED: NICOTINE POLACRILEX 2 MG GUM BUC PRN (18:51)
[2019-12-28] MEDS ORDERED: MAG HYDROX/AL HYDROX/SIMETH 30 ML UNIT-DOSE CUP PO PRN (18:51)
[2019-12-28] MEDS ORDERED: MAGNESIUM CITRATE 300 ML BOTTLE PO PRN (18:51)
[2019-12-28] MEDS ORDERED: chlordiazePOXIDE HCL 25 MG CAPSULE PO ONE (18:55)
[2019-12-28] MEDS ORDERED: chlordiazePOXIDE HCL 10 MG CAPSULE PO PRN (18:55)
[2019-12-28] MEDS ORDERED: BENZOCAINE 20 % GEL TUBE MM PRN (19:14)
[2019-12-28] MEDS ORDERED: MELATONIN 5 MG TABLETS PO SCH (22:00)
[2019-12-28] MEDS ORDERED: METHADONE HCL 10 MG TABLET (FOR DETOX USE ONLY) PO ONE (22:00)
[2019-12-28] MEDS: THIAMINE HCL 100 MG TABLET (FP) PO SCH (23:17)
[2019-12-28] MEDS: TOLNAFTATE 1% CREAM 15 GM TUBE TP SCH (23:20)
[2019-12-29] MEDS: chlordiazePOXIDE HCL 25 MG CAPSULE PO SCH ×3 (05:56→21:46)
[2019-12-29] MEDS ORDERED: METHADONE HCL 5 MG TABLET (FOR DETOX USE ONLY) PO ONE (10:00)
--- NOTE | 2019-12-29 10:09 | CONSULT ---
[facility] Psychiatric Consult - Data Date of interview: 12/29/19 Admission source: Self-referred Identifying data: Mr Brennan is a 44 years old single Black male, father of 4 children, unemployed with no source of income, homeless seeking rehab treatment for alcohol, opioid, cocaine and synthetic cannabis Substance Abuse History: Reports history of alcohol, heroin and k2 use. Refer to addiction counselor's summary for further information Medical History: Significant for history of orthosurgery for fracture right foot 4-6 years ago. Smokes 10 cigarettes daily Psychiatric History: Denies history of previous psychiatric treatment. However, reports sleeping poorly. Physical/Sexual Abuse/Trauma History: Denies emotional, physical or sexual abuse as well as DV relationship. No service Additional Comment: Reports history of multiple misdemeanor arrests. Denies being on probation at present Mental Status Exam - Mental Status Exam Alert and Oriented to: Time, Place, Person Cognitive Function: Fair Patient Appearance: Well Groomed, Disheveled Mood: Depressed Affect: Appropriate Patient Behavior: Cooperative Speech Pattern: Clear Voice Loudness: Normal Thought Process: Intact Thought Disorder: Not Present Hallucinations: Denies Suicidal Ideation: Denies Homicidal Ideation: Denies Insight/Judgement: Poor Sleep: Poorly Appetite: Poor Muscle strength/Tone: Rigidity Gait/Station: Normal Psychiatric Findings - Problem List ([place] 1, 2,3) (1) Substance induced mood disorder Current Visit: No Status: Acute (2) Substance-induced sleep disorder Current Visit: No Status: Acute (3) Uncomplicated alcohol dependence Current Visit: Yes Status: Acute (4) Opioid dependence with withdrawal Current Visit: Yes Status: Acute (5) Cannabis dependence Current Visit: Yes Status: Acute (6) Cocaine abuse Current Visit: Yes Status: Acute (7) Nicotine dependence, uncomplicated Current Visit: Yes Status: Chronic Qualifiers: Nicotine product type: cigarettes Qualified Code(s): F17.210 - Nicotine dependence, cigarettes, uncomplicated (8) Unspecified nystagmus Current Visit: Yes Status: Chronic (9) Foot fracture Current Visit: No Status: Chronic Qualifiers: Encounter type: subsequent encounter Laterality: right Fracture healing: with routine healing Qualified Code(s): S92.901D - Unspecified fracture of right foot, subsequent encounter for fracture with routine healing - Initial Treatment Plan Initial Treatment Plan: 1) Start Melatonin 10 mg po HS prn for insomnia. 2) Continue inpatient detoxification
[2019-12-29 10:21] LABS: HEMATOCRIT 40.6 % (35.4-49); HEMOGLOBIN 13.6 GM/dL (11.7-16.9); MCH 29.7 pg (25.7-33.7); MCHC 33.5 g/dl (32.0-35.9); MEAN CELL VOLUME 88.7 fl (80-96); MEAN PLT VOLUME 10.6 fl (7.5-11.1); PLATELET COUNT 115 K/MM3 (134-434); RBC 4.58 M/mm3 (4.00-5.60); RDW 14.4 % (11.9-15.9); WHITE BLOOD COUNT 3.9 K/mm3 (4.0-10.0)
[2019-12-29 10:33] LABS: ALBUMIN 3.4 g/dl (3.4-5.0); BILIRUBIN,TOTAL 0.3 mg/dL (0.2-1); BLOOD UREA NITROGEN 14.9 mg/dL (7-18); CALCIUM 8.7 mg/dL (8.5-10.1); CREATININE 1.1 mg/dL (0.55-1.3); POTASSIUM 3.9 mmol/L (3.5-5.1); TOT PROT 6.5 g/dl (6.4-8.2)
[2019-12-29] MEDS: PRENATAL VITAMINS W/ FOLIC ACID TABLET (FP) PO SCH (11:04)
[2019-12-29] MEDS: NICOTINE 14 MG/24 HOURS TOPICAL PATCH TD SCH (11:04)
--- NOTE | 2019-12-29 13:20 | PN ---
[facility] CIWA - CIWA Score Nausea/Vomitin-No Nausea/No Vomiting Muscle Tremors: 3 Anxiety: 2 Agitation: 2 Paroxysmal Sweats: 2 Orientation: 0-Oriented Tacttile Disturbances: 0-None Auditory Disturbances: 0-None Visual Disturbances: 0-None Headache: 0-None Present CIWA-Ar Total Score: 9 BHS COWS - Scale Resting Pulse: 0= [place] 80 or Below Sweatin= Chills/Flushing Restless Observation: 1= Difficult to Sit Still Pupil Size: 0= Normal to Room Light Bone or Joint Aches: 1= Mild Discomfort Runny Nose/ Eye Tearin= None GI Upset > 30mins: 0= None Tremor Observation of Outstretched Hands: 1= Tremor [place], Not Seen Yawning Observation: 1= 1-2x During Session Anxiety or Irritability: 2=Irritable/Anxious Goose Flesh Skin: 0=Smooth Skin COWS Score: 7 BHS Progress Note (SOAP) Subjective: sweats shakes irritable agitation Objective: 12/29/19 13:20 Vital Signs Temperature 97.7 F 12/29/19 09:05 Pulse Rate 47 L 12/29/19 09:05 Respiratory Rate 16 12/29/19 09:05 Blood Pressure 98/59 L 12/29/19 09:05 O2 Sat by Pulse Oximetry (%) Laboratory Tests 12/29/19 12/29/19 12/29/19 07:30 07:30 07:30 WBC 3.9 L RBC 4.58 Hgb 13.6 Hct 40.6 MCV 88.7 MCH 29.7 MCHC 33.5 RDW 14.4 Plt Count 115 L MPV 10.6 Sodium 141 Potassium 3.9 Chloride 106 Carbon Dioxide 28 Anion Gap 6 L BUN 14.9 Creatinine 1.1 Est GFR (CKD-EPI)AfAm 94.79 Est GFR (CKD-EPI)NonAf 81.78 Random Glucose 100 Calcium 8.7 Total Bilirubin 0.3 AST 22 ALT 19 Alkaline Phosphatase 57 Total Protein 6.5 Albumin 3.4 RPR Titer Nonreactive aaox3 ambulating no acute distress Assessment: 12/29/19 13:21 withdrawals Plan: continue detox ensure plus bid
--- NOTE | 2019-12-29 14:46 | EKG ---
Test Reason : Blood Pressure : / mmHG Vent. Rate : 044 BPM Atrial Rate : 044 BPM P-R Int : 136 ms QRS Dur : 086 ms QT Int : 470 ms P-R-T Axes : 029 065 046 degrees QTc Int : 401 ms MARKED SINUS BRADYCARDIA SEPTAL INFARCT , AGE UNDETERMINED ABNORMAL ECG WHEN COMPARED WITH ECG OF 05-MAY-2019 01:56, NO SIGNIFICANT CHANGE WAS FOUND Confirmed by MD ARELY, REBECCA ([id number]) on 12/29/2019 2:46:18 PM Referred By: Confirmed By:REBECCA MCGEE MD
[2019-12-29] MEDS: TOLNAFTATE 1% CREAM 15 GM TUBE TP SCH ×2 (15:28→21:48)
[2019-12-29] MEDS: THIAMINE HCL 100 MG TABLET (FP) PO SCH (21:46)
[2019-12-30] MEDS ORDERED: chlordiazePOXIDE HCL 10 MG CAPSULE PO PRN
[2019-12-30] MEDS: chlordiazePOXIDE 5 MG CAPSULE PO SCH ×3 (05:41→22:33)
[2019-12-30] MEDS ORDERED: METHADONE HCL 10 MG TABLET (FOR DETOX USE ONLY) PO ONE (10:00)
[2019-12-30] MEDS: PRENATAL VITAMINS W/ FOLIC ACID TABLET (FP) PO SCH (10:13)
[2019-12-30] MEDS: NICOTINE 14 MG/24 HOURS TOPICAL PATCH TD SCH (10:13)
--- NOTE | 2019-12-30 10:58 | PN ---
S CIWA - CIWA Score Nausea/Vomitin-No Nausea/No Vomiting Muscle Tremors: 2 Anxiety: 1-Mildly Anxious Agitation: 2 Paroxysmal Sweats: 1-Minimal Palms Moist Orientation: 0-Oriented Tacttile Disturbances: 0-None Auditory Disturbances: 0-None Visual Disturbances: 0-None Headache: 0-None Present CIWA-Ar Total Score: 6 BHS COWS - Scale Resting Pulse: 0= [place] 80 or Below Sweatin= Chills/Flushing Restless Observation: 1= Difficult to Sit Still Pupil Size: 0= Normal to Room Light Bone or Joint Aches: 1= Mild Discomfort Runny Nose/ Eye Tearin= None GI Upset > 30mins: 0= None Tremor Observation of Outstretched Hands: 1= Tremor [place], Not Seen Yawning Observation: 1= 1-2x During Session Anxiety or Irritability: 1=Feels Anxious/Irritable Goose Flesh Skin: 0=Smooth Skin COWS Score: 6 [facility] Progress Note (SOAP) Subjective: sweats irritable body aches interrupted sleep Objective: 12/30/19 11:24 Vital Signs Temperature 98.4 F 12/30/19 09:03 Pulse Rate 54 L 12/30/19 09:03 Respiratory Rate 18 12/30/19 09:03 Blood Pressure 130/65 12/30/19 09:03 O2 Sat by Pulse Oximetry (%) Laboratory Tests 12/29/19 12/29/19 12/29/19 07:30 07:30 07:30 WBC 3.9 L RBC 4.58 Hgb 13.6 Hct 40.6 MCV 88.7 MCH 29.7 MCHC 33.5 RDW 14.4 Plt Count 115 L MPV 10.6 Sodium 141 Potassium 3.9 Chloride 106 Carbon Dioxide 28 Anion Gap 6 L BUN 14.9 Creatinine 1.1 Est GFR (CKD-EPI)AfAm 94.79 Est GFR (CKD-EPI)NonAf 81.78 Random Glucose 100 Calcium 8.7 Total Bilirubin 0.3 AST 22 ALT 19 Alkaline Phosphatase 57 Total Protein 6.5 Albumin 3.4 RPR Titer Nonreactive aaox3 ambulating no acute distress Assessment: 12/30/19 11:25 withdrawals Plan: continue detox increase fluids
[2019-12-30] MEDS: TOLNAFTATE 1% CREAM 15 GM TUBE TP SCH ×2 (11:04→22:36)
[2019-12-30] MEDS: THIAMINE HCL 100 MG TABLET (FP) PO SCH (22:33)
[2019-12-30] MEDS: MELATONIN 5 MG TABLETS PO PRN (22:34)
[2019-12-31] MEDS ORDERED: METHADONE HCL 5 MG TABLET (FOR DETOX USE ONLY) PO ONE (06:00)
--- NOTE | 2019-12-31 09:39 | PN ---
[facility] CIWA - CIWA Score Nausea/Vomitin-No Nausea/No Vomiting Muscle Tremors: 2 Anxiety: 1-Mildly Anxious Agitation: 1-Slight > Activity Paroxysmal Sweats: 1-Minimal Palms Moist Orientation: 0-Oriented Tacttile Disturbances: 0-None Auditory Disturbances: 0-None Visual Disturbances: 0-None Headache: 0-None Present CIWA-Ar Total Score: 5 S COWS - Scale Resting Pulse: 0= [place] 80 or Below Sweatin= Chills/Flushing Restless Observation: 1= Difficult to Sit Still Pupil Size: 0= Normal to Room Light Bone or Joint Aches: 1= Mild Discomfort Runny Nose/ Eye Tearin= None GI Upset > 30mins: 0= None Tremor Observation of Outstretched Hands: 1= Tremor [place], Not Seen Yawning Observation: 0= None Anxiety or Irritability: 0= None Goose Flesh Skin: 0=Smooth Skin COWS Score: 4 S Progress Note (SOAP) Subjective: irritable sweats Objective: 12/31/19 09:48 Vital Signs Temperature 97.9 F 12/31/19 06:30 Pulse Rate 50 L 12/31/19 06:30 Respiratory Rate 16 12/31/19 06:30 Blood Pressure 101/58 L 12/31/19 06:30 O2 Sat by Pulse Oximetry (%) aaox3 ambulating no acute distress Assessment: 12/31/19 09:54 withdrawals Plan: continue detox d/c in am
[2019-12-31] MEDS: chlordiazePOXIDE HCL 10 MG CAPSULE PO SCH ×2 (11:13→21:26)
[2019-12-31] MEDS: PRENATAL VITAMINS W/ FOLIC ACID TABLET (FP) PO SCH (11:13)
[2019-12-31] MEDS: NICOTINE 14 MG/24 HOURS TOPICAL PATCH TD SCH (11:14)
[2019-12-31] MEDS: TOLNAFTATE 1% CREAM 15 GM TUBE TP SCH ×2 (11:15→21:29)
[2019-12-31] MEDS: MELATONIN 5 MG TABLETS PO PRN (21:26)
[2019-12-31] MEDS: THIAMINE HCL 100 MG TABLET (FP) PO SCH (21:26)
[2020-01-01] MEDS ORDERED: chlordiazePOXIDE HCL 10 MG CAPSULE PO ONE (05:00)
--- NOTE | 2020-01-01 09:19 | DS ---
[facility] Detox Discharge Summary Admission Date: 12/28/19 Discharge Date: 01/01/20 - History Present History: Alcohol Dependence, Cocaine Dependence, Opioid Dependence - Physical Exam Results Vital Signs: Vital Signs Temperature 97.9 F 01/01/20 06:29 Pulse Rate 46 L 01/01/20 06:29 Respiratory Rate 16 01/01/20 06:29 Blood Pressure 111/61 01/01/20 06:29 O2 Sat by Pulse Oximetry (%) Pertinent Admission Physical Exam Findings: Vital Signs Temperature 97.9 F 01/01/20 06:29 Pulse Rate 46 L 01/01/20 06:29 Respiratory Rate 16 01/01/20 06:29 Blood Pressure 111/61 01/01/20 06:29 O2 Sat by Pulse Oximetry (%) Laboratory Tests 12/29/19 12/29/19 12/29/19 07:30 07:30 07:30 WBC 3.9 L RBC 4.58 Hgb 13.6 Hct 40.6 MCV 88.7 MCH 29.7 MCHC 33.5 RDW 14.4 Plt Count 115 L MPV 10.6 Sodium 141 Potassium 3.9 Chloride 106 Carbon Dioxide 28 Anion Gap 6 L BUN 14.9 Creatinine 1.1 Est GFR (CKD-EPI)AfAm 94.79 Est GFR (CKD-EPI)NonAf 81.78 Random Glucose 100 Calcium 8.7 Total Bilirubin 0.3 AST 22 ALT 19 Alkaline Phosphatase 57 Total Protein 6.5 Albumin 3.4 RPR Titer Nonreactive aaox3 ambulating no acute distress lungs CTA - Treatment Hospital Course: Detox Protocol Followed, Detoxed Safely, Responded well, Discharged Condition Good, Rehab Referral Accepted - Medication Discharge Medications: Ambulatory Orders Quetiapine Fumarate [Seroquel] 100 mg PO HS #30 tablet 05/18/19 - Diagnosis (1) Cannabis dependence Current Visit: Yes Status: Chronic (2) Cocaine abuse Current Visit: Yes Status: Chronic (3) Opioid dependence with withdrawal Current Visit: Yes Status: Chronic (4) Uncomplicated alcohol dependence Current Visit: Yes Status: Chronic (5) Alcohol use disorder Current Visit: Yes Status: Chronic (6) Bradycardia Current Visit: Yes Status: Chronic (7) Nicotine dependence, uncomplicated Current Visit: Yes Status: Chronic Qualifiers: Nicotine product type: cigarettes Qualified Code(s): F17.210 - Nicotine dependence, cigarettes, uncomplicated (8) Tinea pedis Current Visit: Yes Status: Chronic Qualifiers: Laterality: bilateral Qualified Code(s): B35.3 - Tinea pedis (9) Tooth ache Current Visit: Yes Status: Chronic (10) History of foot fracture Current Visit: Yes Status: Resolved (11) Substance induced mood disorder Current Visit: No Status: Acute (12) Substance-induced sleep disorder Current Visit: No Status: Acute (13) Foot fracture Current Visit: No Status: Chronic Qualifiers: Encounter type: subsequent encounter Laterality: right Fracture healing: with routine healing Qualified Code(s): S92.901D - Unspecified fracture of right foot, subsequent encounter for fracture with routine healing (14) Insomnia Current Visit: No Status: Chronic Qualifiers: Insomnia type: unspecified Qualified Code(s): G47.00 - Insomnia, unspecified (15) Nicotine dependence Current Visit: Yes Status: Chronic Qualifiers: Nicotine product type: cigarettes Substance use status: uncomplicated Qualified Code(s): F17.210 - Nicotine dependence, cigarettes, uncomplicated - AMA Did Patient Leave Against Medical Advice: No
[2020-01-01] MEDS: chlordiazePOXIDE HCL 10 MG CAPSULE PO SCH (10:15)
[2020-01-01] MEDS: NICOTINE 14 MG/24 HOURS TOPICAL PATCH TD SCH (10:16)
[2020-01-01] MEDS: TOLNAFTATE 1% CREAM 15 GM TUBE TP SCH (10:16)
[2020-01-01] MEDS: PRENATAL VITAMINS W/ FOLIC ACID TABLET (FP) PO SCH (10:16)
[2020-01-01] MEDS ORDERED: NICOTINE 21 MG/24 HOURS TOPICAL PATCH TD SCH (10:45)
[2020-01-01 11:17] VITALS: BP 134/72; PULSE 57; TEMP 97
== END 2020-01-01 11:46 | disposition home or self-care (01) | DRG 773 ==
LOC: YASAS 15:00 → Y6N 19:20
PROVIDERS: ADMIT Allergy & Immunology; ATTEND Allergy & Immunology
PROC: HZ2ZZZZ Detoxification Services for Substance Abuse Treatment (ICD-10-PCS; principal; 2019-12-28)
DX: F11.23 Opioid dependence with withdrawal (principal); F10.20 Alcohol dependence, uncomplicated; F14.20 Cocaine dependence, uncomplicated; F12.20 Cannabis dependence, uncomplicated; F17.210 Nicotine dependence, cigarettes, uncomplicated; F19.282 Other psychoactive substance dependence with psychoactive substance-induced sleep disorder; F19.24 Other psychoactive substance dependence with psychoactive substance-induced mood disorder; R00.1 Bradycardia, unspecified; B35.3 Tinea pedis; K08.89 Other specified disorders of teeth and supporting structures; G47.00 Insomnia, unspecified; H55.00 Unspecified nystagmus; Z56.0 Unemployment, unspecified; Z59.0 Homelessness; Z87.81 Personal history of (healed) traumatic fracture
CPT/HCPCS: 36415; 80053; 85027; 86593; 93005; 93010

== ENCOUNTER 2022-08-06 19:42 | Inpatient (IN) | payer OTHER ==
[2022-08-06 19:52] VITALS: BMI 25.0
[2022-08-06] MEDS ORDERED: ACETAMINOPHEN 500 MG TABLET (FP) PO ONE (21:43)
[2022-08-06] MEDS ORDERED: ALPRAZolam 0.25 MG TABLET PO STA (21:46)
[2022-08-06] MEDS ORDERED: SODIUM CHLORIDE 1,000 ML IV STA (21:51)
[2022-08-06] MEDS ORDERED: ALPRAZolam 0.25 MG TABLET ONE (21:52)
[2022-08-06] MEDS ORDERED: ACETAMINOPHEN 325 MG TABLET (FP) ONE (21:52)
[2022-08-06 22:03] LABS: BASO % 0.8 % (0-2.0); EOS % 3.5 % (0-4.5); HEMATOCRIT 37.8 % (35.4-49); HEMOGLOBIN 12.8 GM/dL (11.7-16.9); LYMPH % 20.8 % (8-40); MCH 28.7 pg (25.7-33.7); MCHC 33.9 g/dl (32.0-35.9); MEAN CELL VOLUME 84.8 fl (80-96); MEAN PLT VOLUME 8.9 fl (7.5-11.1); MONO % 14.2 % (3.8-10.2); NEUT % 60.7 % (42.8-82.8); PLATELET COUNT 145 10^3/uL (134-434); RBC 4.46 M/mm3 (4.00-5.60); WHITE BLOOD COUNT 9.3 K/mm3 (4.0-10.0)
[2022-08-06] MEDS ORDERED: PIPERACILLIN/TAZOBACTAM 4.5 GM VIAL IVPB ONE (22:38)
[2022-08-06] MEDS ORDERED: VANCOMYCIN 1,000 MG in DEXTROSE 5%-WATER - 250 ML IVPB ONE (22:38)
[2022-08-06 22:46] LABS: CHLORIDE 103 mmol/L (98-107); SODIUM 130 mmol/L (136-145)
[2022-08-06 22:47] LABS: CALCIUM 8.1 mg/dL (8.5-10.1)
[2022-08-06 22:48] LABS: ALBUMIN 2.9 g/dl (3.4-5.0); BLOOD UREA NITROGEN 14.9 mg/dL (7-18); CO2 24 mmol/L (21-32); GLUCOSE,RANDOM 71 mg/dL (74-106)
[2022-08-06 22:51] LABS: CREATININE 0.8 mg/dL (0.55-1.3)
[2022-08-06 22:53] LABS: BILIRUBIN,TOTAL 0.9 mg/dL (0.2-1); TOT PROT 7.5 g/dl (6.4-8.2)
[2022-08-06 22:54] LABS: ALK PHOS 64 U/L (45-117)
[2022-08-06 23:00] LABS: ANION GAP 3 MMOL/L (8-16); SGOT/AST 96 U/L (15-37); SGPT/ALT 31 U/L (13-61)
[2022-08-06] MEDS ORDERED: VANCOMYCIN/WATER FOR INJ (PEG) 1,000 MG/200 ML BAG IVPB ONE (23:02)
[2022-08-06 23:42] LABS: BLOOD UREA NITROGEN 15.4 mg/dL (7-18)
[2022-08-06 23:45] LABS: CREATININE 0.9 mg/dL (0.55-1.3); INR 1.16 (0.83-1.09); PROTHROMBIN TIME (PATIENT) 13.4 SEC (9.7-13.0)
[2022-08-06 23:48] LABS: ACTIVATED PTT 26.5 SECONDS (25.2-36.5)
[2022-08-07] MEDS ORDERED: PIPERACILLIN/TAZOB 4.5 GM 4.5 GM/100 ML BAG IVPB ONE (01:21)
[2022-08-07] MEDS ORDERED: cloNIDine HCL 0.1 MG TABLET PO ONE (02:46)
[2022-08-07] MEDS ORDERED: LORazepam 2 MG TABLET PO ONE (03:13)
[2022-08-07] MEDS ORDERED: LORazepam 1 MG TABLET PO PRN (03:13)
[2022-08-07] MEDS: SODIUM CHLORIDE 1,000 ML IV SCH (03:58)
[2022-08-07] MEDS: THIAMINE HCL 200 MG/2 ML VIAL IVPB SCH ×2 (04:14→09:27)
[2022-08-07] MEDS: FOLIC ACID 1 MG TABLET (FP) PO SCH ×2 (04:14→09:28)
[2022-08-07] MEDS: LORazepam 1 MG TABLET PO SCH ×2 (04:24→12:28)
[2022-08-07] MEDS ORDERED: LORazepam 2 MG TABLET PO SCH (05:00)
[2022-08-07] MEDS: NICOTINE 14 MG/24 HOURS TOPICAL PATCH TD SCH ×2 (06:54→09:30)
[2022-08-07] MEDS: VANCOMYCIN/WATER 1,250 MG/250 ML BAG IVPB SCH ×2 (06:55→22:15)
[2022-08-07] MEDS: ENOXAPARIN NA (PORCINE) 40 MG/0.4 ML DISP.SYRIN SQ SCH ×2 (09:29→11:34)
[2022-08-07 09:58] LABS: BASO % 0.8 % (0-2.0); EOS % 4.2 % (0-4.5); HEMATOCRIT 37.6 % (35.4-49); LYMPH % 13.9 % (8-40); MCHC 34.5 g/dl (32.0-35.9); MEAN PLT VOLUME 9.6 fl (7.5-11.1); MONO % 11.4 % (3.8-10.2); NEUT % 69.7 % (42.8-82.8); PLATELET COUNT 138 10^3/uL (134-434); RBC 4.47 M/mm3 (4.00-5.60); RDW 12.9 % (11.9-15.9); WHITE BLOOD COUNT 6.8 K/mm3 (4.0-10.0)
[2022-08-07 10:36] LABS: ALBUMIN 3.1 g/dl (3.4-5.0); BLOOD UREA NITROGEN 11.6 mg/dL (7-18); CALCIUM 8.8 mg/dL (8.5-10.1); MAGNESIUM 2.1 mg/dL (1.8-2.4)
[2022-08-07 10:40] LABS: CREATININE 0.8 mg/dL (0.55-1.3)
[2022-08-07 10:41] LABS: BILIRUBIN,TOTAL 0.7 mg/dL (0.2-1); TOT PROT 6.5 g/dl (6.4-8.2)
[2022-08-07] MEDS ORDERED: cloNIDine HCL 0.1 MG TABLET PO PRN (12:01)
[2022-08-07] MEDS ORDERED: methaDONE HCL 10 MG TABLET (FOR DETOX USE ONLY) PO ONE ×2 (12:01→13:45)
[2022-08-07] MEDS: PIPERACILLIN/TAZOB 3.375 GM 3.375 GM in DEXTROSE 5%-WATER - 50 ML IVPB SCH ×2 (14:52→21:26)
[2022-08-07] MEDS: DEXTROSE 5%-LACTATED RINGERS 1,000 ML IV SCH (15:06)
[2022-08-08] MEDS: PIPERACILLIN/TAZOB 3.375 GM 3.375 GM in DEXTROSE 5%-WATER - 50 ML IVPB SCH ×6 (04:00→18:12)
[2022-08-08] MEDS ORDERED: LORazepam 1 MG TABLET PO SCH (05:00)
[2022-08-08 06:17] LABS: COCAINE QUALITATIVE URINE Negative ng/mL (Cutoff=300); MARIJUANA QL URINE CANNABINOID Positive ng/mL (Cutoff=50); METHADONE,QUALITATIVE URINE Negative ng/mL (Cutoff=300); OPIATES QL URINE Positive ng/mL (Cutoff=300); PHENCYCLIDINE,QUAL URINE Negative ng/mL (Cutoff=25); PROPOXYPHENE QL URINE Negative ng/mL (Cutoff=300); URINE AMPHETAMINES Negative ng/mL (Cutoff=1000)
[2022-08-08] MEDS: NICOTINE 14 MG/24 HOURS TOPICAL PATCH TD SCH (09:20)
[2022-08-08] MEDS: FOLIC ACID 1 MG TABLET (FP) PO SCH (09:20)
[2022-08-08] MEDS: THIAMINE HCL 200 MG/2 ML VIAL IVPB SCH (09:21)
[2022-08-08] MEDS ORDERED: methaDONE HCL 10 MG TABLET PO ONE (10:00)
[2022-08-08] MEDS ORDERED: VANCOMYCIN/WATER 1250 MG 1,250 MG/250 ML BAG IVPB SCH (15:00)
[2022-08-08] MEDS: VANCOMYCIN/WATER 1,250 MG/250 ML BAG IVPB SCH (15:53)
[2022-08-08] MEDS: DEXTROSE 5%-LACTATED RINGERS 1,000 ML IV SCH (18:13)
[2022-08-08] MEDS: SODIUM CHLORIDE 1,000 ML IV SCH (23:53)
[2022-08-09] MEDS ORDERED: LORazepam 0.5 MG TABLET PO PRN
[2022-08-09 00:17] LABS: INR 1.12 (0.83-1.09); PROTHROMBIN TIME (PATIENT) 12.9 SEC (9.7-13.0)
[2022-08-09] MEDS ORDERED: MELATONIN 5 MG TABLETS PO ONE (00:20)
[2022-08-09] MEDS: PIPERACILLIN/TAZOB 3.375 GM 3.375 GM in DEXTROSE 5%-WATER - 50 ML IVPB SCH ×3 (01:34→10:27)
[2022-08-09] MEDS ORDERED: LORazepam 0.5 MG TABLET PO SCH (05:00)
[2022-08-09] MEDS: SODIUM CHLORIDE 1,000 ML IV SCH ×3 (08:10→12:05)
[2022-08-09] MEDS ORDERED: BUPIVACAINE HCL/PF 0.5% (5MG/ML) 10 ML VIAL IJ ONE (09:23)
[2022-08-09] MEDS ORDERED: LIDOCAINE HCL 1%, 10 MG/ML (20ML VIAL) INF ONE (09:23)
[2022-08-09] MEDS ORDERED: ONDANSETRON 4 MG/2 ML VIAL IVPUSH PRN ×2 (10:21→10:35)
[2022-08-09] MEDS: FOLIC ACID 1 MG TABLET (FP) PO SCH (12:05)
[2022-08-09] MEDS: ENOXAPARIN NA (PORCINE) 40 MG/0.4 ML DISP.SYRIN SQ SCH (12:06)
[2022-08-09] MEDS: THIAMINE HCL 200 MG/2 ML VIAL IVPB SCH (12:06)
[2022-08-09] MEDS: NICOTINE 14 MG/24 HOURS TOPICAL PATCH TD SCH (12:06)
[2022-08-09 13:18] LABS: HEMATOCRIT 41.3 % (35.4-49); HEMOGLOBIN 13.8 GM/dL (11.7-16.9); MCH 28.4 pg (25.7-33.7); MCHC 33.5 g/dl (32.0-35.9); MEAN CELL VOLUME 84.9 fl (80-96); MEAN PLT VOLUME 9.8 fl (7.5-11.1); PLATELET COUNT 187 10^3/uL (134-434); RBC 4.86 M/mm3 (4.00-5.60); RDW 12.9 % (11.9-15.9); WHITE BLOOD COUNT 5.6 K/mm3 (4.0-10.0)
[2022-08-09 13:31] LABS: BLOOD UREA NITROGEN 10.9 mg/dL (7-18); CALCIUM 8.9 mg/dL (8.5-10.1)
[2022-08-09 13:34] LABS: CREATININE 0.8 mg/dL (0.55-1.3)
[2022-08-09 13:35] LABS: BILIRUBIN,TOTAL 0.8 mg/dL (0.2-1); TOT PROT 6.8 g/dl (6.4-8.2)
[2022-08-09] MEDS: VANCOMYCIN/WATER 1250 MG 1,250 MG/250 ML BAG IVPB SCH (15:21)
[2022-08-09] MEDS ORDERED: ZOLPIDEM TARTRATE 5 MG TABLET PO ONE (23:20)
[2022-08-10] MEDS: PIPERACILLIN/TAZOB 3.375 GM 3.375 GM in DEXTROSE 5%-WATER - 50 ML IVPB SCH ×3 (02:19→19:09)
[2022-08-10] MEDS ORDERED: LORazepam 0.5 MG TABLET PO ONE (05:00)
[2022-08-10] MEDS: ENOXAPARIN NA (PORCINE) 40 MG/0.4 ML DISP.SYRIN SQ SCH (09:37)
[2022-08-10] MEDS: FOLIC ACID 1 MG TABLET (FP) PO SCH (09:37)
[2022-08-10] MEDS ORDERED: methaDONE HCL 10 MG TABLET PO ONE ×2 (10:00)
[2022-08-10] MEDS: NICOTINE 14 MG/24 HOURS TOPICAL PATCH TD SCH (10:41)
[2022-08-10] MEDS: THIAMINE HCL 200 MG/2 ML VIAL IVPB SCH (10:42)
[2022-08-10 14:40] LABS: BASO % 1.2 % (0-2.0); EOS % 3.2 % (0-4.5); HEMATOCRIT 42.4 % (35.4-49); HEMOGLOBIN 14.1 GM/dL (11.7-16.9); LYMPH % 32.4 % (8-40); MCH 28.4 pg (25.7-33.7); MCHC 33.3 g/dl (32.0-35.9); MEAN CELL VOLUME 85.5 fl (80-96); MEAN PLT VOLUME 9.9 fl (7.5-11.1); MONO % 9.2 % (3.8-10.2); PLATELET COUNT 181 10^3/uL (134-434); RBC 4.97 M/mm3 (4.00-5.60); RDW 13.2 % (11.9-15.9); WHITE BLOOD COUNT 4.9 K/mm3 (4.0-10.0)
[2022-08-10 15:13] LABS: BLOOD UREA NITROGEN 11.1 mg/dL (7-18)
[2022-08-10 15:14] LABS: MAGNESIUM 2.2 mg/dL (1.8-2.4)
[2022-08-10 15:15] LABS: CALCIUM 8.7 mg/dL (8.5-10.1)
[2022-08-10 15:16] LABS: CREATININE 0.9 mg/dL (0.55-1.3); PHOSPHOROUS 3.2 mg/dL (2.5-4.9)
[2022-08-10 15:18] LABS: BILIRUBIN,TOTAL 0.5 mg/dL (0.2-1); TOT PROT 6.7 g/dl (6.4-8.2)
[2022-08-10] MEDS: SODIUM CHLORIDE 1,000 ML IV SCH ×2 (15:36→22:11)
[2022-08-10] MEDS: VANCOMYCIN/WATER 1250 MG 1,250 MG/250 ML BAG IVPB SCH ×2 (15:36→19:41)
[2022-08-11] MEDS: PIPERACILLIN/TAZOB 3.375 GM 3.375 GM in DEXTROSE 5%-WATER - 50 ML IVPB SCH ×4 (03:45→18:58)
[2022-08-11] MEDS: ENOXAPARIN NA (PORCINE) 40 MG/0.4 ML DISP.SYRIN SQ SCH ×2 (09:58→10:19)
[2022-08-11] MEDS: FOLIC ACID 1 MG TABLET (FP) PO SCH (09:59)
[2022-08-11] MEDS: NICOTINE 14 MG/24 HOURS TOPICAL PATCH TD SCH (10:04)
[2022-08-11] MEDS: SODIUM CHLORIDE 1,000 ML IV SCH (10:06)
[2022-08-11] MEDS: NYSTATIN 100,000 UNIT/GM TOPICAL CREAM 15 GM TUBE TP SCH (14:08)
[2022-08-11] MEDS: COLLAGENASE CLOSTRIDIUM HIST. 30 GRAMS TUBE TP SCH (14:08)
[2022-08-11] MEDS: THIAMINE HCL 200 MG/2 ML VIAL IVPB SCH (14:37)
[2022-08-11] MEDS ORDERED: ACETAMINOPHEN 500 MG TABLET (FP) PO PRN (15:29)
[2022-08-11] MEDS ORDERED: IBUPROFEN 600 MG TABLET (FP) PO PRN (15:30)
[2022-08-11] MEDS: VANCOMYCIN/WATER 1250 MG 1,250 MG/250 ML BAG IVPB SCH (16:30)
[2022-08-11 17:55] VITALS: RESP 18
[2022-08-12] MEDS ORDERED: MELATONIN 5 MG TABLETS PO ONE (03:07)
[2022-08-12] MEDS: SODIUM CHLORIDE 1,000 ML IV SCH ×2 (03:25→09:54)
[2022-08-12] MEDS: COLLAGENASE CLOSTRIDIUM HIST. 30 GRAMS TUBE TP SCH (09:46)
[2022-08-12] MEDS: FOLIC ACID 1 MG TABLET (FP) PO SCH (09:46)
[2022-08-12] MEDS: NICOTINE 14 MG/24 HOURS TOPICAL PATCH TD SCH (09:46)
[2022-08-12] MEDS: NYSTATIN 100,000 UNIT/GM TOPICAL CREAM 15 GM TUBE TP SCH (09:46)
[2022-08-12] MEDS: THIAMINE HCL 200 MG/2 ML VIAL IVPB SCH (09:47)
[2022-08-12] MEDS: VANCOMYCIN/WATER 1250 MG 1,250 MG/250 ML BAG IVPB SCH (16:04)
[2022-08-13] MEDS ORDERED: VANCOMYCIN/WATER FOR INJ (PEG) 1,000 MG/200 ML BAG IVPB SCH (04:00)
[2022-08-13] MEDS: NICOTINE 14 MG/24 HOURS TOPICAL PATCH TD SCH (11:01)
[2022-08-13] MEDS: FOLIC ACID 1 MG TABLET (FP) PO SCH (11:01)
[2022-08-13] MEDS: THIAMINE HCL 200 MG/2 ML VIAL IVPB SCH (11:01)
[2022-08-13] MEDS: COLLAGENASE CLOSTRIDIUM HIST. 30 GRAMS TUBE TP SCH (11:07)
[2022-08-13] MEDS: NYSTATIN 100,000 UNIT/GM TOPICAL CREAM 15 GM TUBE TP SCH (11:07)
[2022-08-13] MEDS: SODIUM CHLORIDE 1,000 ML IV SCH (11:20)
[2022-08-13 15:09] VITALS: BP 125/78; PULSE 56; TEMP 98.4
== END 2022-08-13 15:28 | disposition left against medical advice (07) | DRG 312 ==
LOC: JER 19:42 → JERBED 08-07 00:33 → J7W 08-07 03:11
PROVIDERS: ADMIT Internal Medicine; ATTEND Internal Medicine
PROC: 0J9R0ZZ Drainage of Left Foot Subcutaneous Tissue and Fascia, Open Approach (ICD-10-PCS; 2022-08-09)
PROC: 0HBNXZZ Excision of Left Foot Skin, External Approach (ICD-10-PCS; principal; 2022-08-09 08:30)
DX: M86.9 Osteomyelitis, unspecified (principal); L03.116 Cellulitis of left lower limb; F11.23 Opioid dependence with withdrawal; F17.210 Nicotine dependence, cigarettes, uncomplicated; A49.02 Methicillin resistant Staphylococcus aureus infection, unspecified site
CPT/HCPCS: 36415; 73630-TC-LT; 73720-LT; 80048; 80053; 80307; 83605; 83735; 84100; 85025; 85027; 85610; 85730; 87040; 87070; 87186; 87205; 88304-TC; 93005; 93010; 94760; 99285-25; C9803-CS; G0480; U0003; U0005

== ENCOUNTER 2023-06-21 09:09 | Emergency (ER) | payer OTHER ==
[2023-06-21 09:17] VITALS: RESP 16; TEMP 98.5; BMI 25.0
[2023-06-21 10:54] LABS: BASO % 0.4 % (0-2.0); EOS % 3.5 % (0-4.5); HEMATOCRIT 35.4 % (35.4-49); HEMOGLOBIN 11.7 GM/dL (11.7-16.9); LYMPH % 11.4 % (8-40); MCH 29.1 pg (25.7-33.7); MCHC 33.2 g/dl (32.0-35.9); MEAN CELL VOLUME 87.6 fl (80-96); MEAN PLT VOLUME 9.2 fl (7.5-11.1); MONO % 8.8 % (3.8-10.2); NEUT % 75.9 % (42.8-82.8); PLATELET COUNT 250 10^3/uL (134-434); RBC 4.04 M/mm3 (4.00-5.60); RDW 13.1 % (11.9-15.9); WHITE BLOOD COUNT 8.3 K/mm3 (4.0-10.0)
[2023-06-21 10:59] LABS: INR 1.06 (0.83-1.09); PROTHROMBIN TIME (PATIENT) 12.3 SEC (9.7-13.0)
[2023-06-21 11:26] LABS: ALBUMIN 2.9 g/dl (3.4-5.0); BLOOD UREA NITROGEN 7.5 mg/dL (7-18); CALCIUM 8.6 mg/dL (8.5-10.1)
[2023-06-21 11:29] LABS: CREATININE 0.8 mg/dL (0.55-1.3)
[2023-06-21 11:30] LABS: BILIRUBIN,TOTAL 0.2 mg/dL (0.2-1); TOT PROT 6.8 g/dl (6.4-8.2)
[2023-06-21] MEDS ORDERED: ACETAMINOPHEN 500 MG TABLET (FP) PO ONE (14:57)
[2023-06-21] MEDS ORDERED: IBUPROFEN 600 MG TABLET (FP) PO ONE ×2 (14:57→15:25)
[2023-06-21] MEDS ORDERED: ACETAMINOPHEN 325 MG TABLET (FP) ONE (15:25)
[2023-06-21 15:59] VITALS: BP 109/71; PULSE 65
== END 2023-06-21 16:11 | disposition home or self-care (01) ==
LOC: JER 09:09
DX: R10.31 Right lower quadrant pain (principal); K40.90 Unilateral inguinal hernia, without obstruction or gangrene, not specified as recurrent
CPT/HCPCS: 36415; 74177-TC; 76870-TC; 80053; 85025; 85610; 86850; 86900; 86901; 99285-25; Q9967

== ENCOUNTER 2023-07-08 16:34 | Inpatient (IN) | payer OTHER ==
[2023-07-08 18:36] VITALS: BMI 23.3
[2023-07-08] MEDS ORDERED: LOPERAMIDE HCL 2 MG CAPSULE PO PRN (21:49)
[2023-07-08] MEDS ORDERED: NALOXONE HCL 0.4 MG/ML VIAL IM PRN (21:49)
[2023-07-08] MEDS ORDERED: NICOTINE POLACRILEX 2 MG GUM BUC PRN (21:49)
[2023-07-08] MEDS ORDERED: AMMONIUM LACTATE 12% LOTION 225 GM BOTTLE TP PRN (21:49)
[2023-07-08] MEDS ORDERED: MAG HYDROX/AL HYDROX/SIMETH 30 ML UNIT-DOSE CUP PO PRN (21:49)
[2023-07-08] MEDS ORDERED: ACETAMINOPHEN 325 MG TABLET (FP) PO PRN (21:49)
[2023-07-08] MEDS ORDERED: POLYETHYLENE GLYCOL (HEALTHYLAX) 3350 17 GM PACKET PO PRN (21:49)
[2023-07-08] MEDS ORDERED: BENZONATATE 200 MG CAPSULE PO PRN (21:49)
[2023-07-08] MEDS ORDERED: MAGNESIUM HYDROX 2400MG/30ML ORAL SUSPENSION 30 ML CUP PO PRN (21:49)
[2023-07-08] MEDS ORDERED: IBUPROFEN 600 MG TABLET (FP) PO PRN (21:49)
[2023-07-08] MEDS ORDERED: BENZOCAINE/MENTHOL (CHLORASEPTIC ) LOZENGE MM PRN (21:49)
[2023-07-08] MEDS ORDERED: IBUPROFEN 400 MG TABLET (FP) PO PRN (21:49)
[2023-07-08] MEDS ORDERED: guaiFENesin 600 MG TABLET.ER (FP) PO PRN (21:49)
[2023-07-08] MEDS ORDERED: NALOXONE HCL (KLOXXADO) 8 MG SPRAY NS PRN (21:49)
[2023-07-08] MEDS ORDERED: COLLOIDAL OATMEAL 1 BAR EACH TP PRN (21:49)
[2023-07-08] MEDS ORDERED: hydrOXYzine PAMOATE 25 MG CAPSULE (FP) PO PRN (21:49)
[2023-07-08] MEDS ORDERED: P-EPHED 60MG/TRIPROLIDI 2.5MG TABLET PO PRN (21:49)
[2023-07-08] MEDS ORDERED: MELATONIN 5 MG TABLETS ONE (22:47)
[2023-07-08] MEDS: MELATONIN 5 MG TABLETS PO SCH (22:53)
[2023-07-08] MEDS: THIAMINE HCL 100 MG TABLET (FP) PO SCH (22:54)
[2023-07-09] MEDS ORDERED: methaDONE HCL 40 MG DISPERSABLE TABLET PO SCH (06:30)
[2023-07-09] MEDS ORDERED: TUBERCULIN PPD 5 TU/0.1ML SYRINGE (IN PATIENT USE ONLY) ID ONE (10:00)
[2023-07-09] MEDS: PRENATAL VITAMINS W/ FOLIC ACID TABLET (FP) PO SCH (10:48)
[2023-07-09 11:50] LABS: HEMATOCRIT 34.2 % (35.4-49); HEMOGLOBIN 11.4 GM/dL (11.7-16.9); MCH 28.5 pg (25.7-33.7); MCHC 33.4 g/dl (32.0-35.9); MEAN CELL VOLUME 85.4 fl (80-96); MEAN PLT VOLUME 9.2 fl (7.5-11.1); PLATELET COUNT 284 10^3/uL (134-434); RDW 13.3 % (11.9-15.9); WHITE BLOOD COUNT 10.3 K/mm3 (4.0-10.0)
[2023-07-09 11:51] LABS: POTASSIUM 4.2 mmol/L (3.5-5.1)
[2023-07-09 11:54] LABS: ALBUMIN 2.2 g/dl (3.4-5.0); CALCIUM 8.7 mg/dL (8.5-10.1)
[2023-07-09 11:55] LABS: BLOOD UREA NITROGEN 13.6 mg/dL (7-18)
[2023-07-09 11:57] LABS: CREATININE 0.8 mg/dL (0.55-1.3)
[2023-07-09 11:59] LABS: BILIRUBIN,TOTAL 0.2 mg/dL (0.2-1); TOT PROT 6.9 g/dl (6.4-8.2)
[2023-07-09] MEDS: MELATONIN 5 MG TABLETS PO SCH (21:25)
[2023-07-09] MEDS: THIAMINE HCL 100 MG TABLET (FP) PO SCH (21:25)
[2023-07-10] MEDS: PRENATAL VITAMINS W/ FOLIC ACID TABLET (FP) PO SCH (10:22)
[2023-07-10 10:41] LABS: URINE APPEARANCE CLOUDY; URINE BILIRUBIN NEGATIVE (NEGATIVE); URINE COLOR YELLOW; URINE GLUCOSE (UA) NEGATIVE (NEGATIVE); URINE KETONE NEGATIVE (NEGATIVE); URINE LEUK ESTERASE NEGATIVE (NEGATIVE); URINE NITRITE NEGATIVE (NEGATIVE); URINE PROTEIN NEGATIVE (NEGATIVE); URINE UROBILINOGEN 0.2 mg/dL (0.2-1.0)
[2023-07-10] MEDS: SULFAMETHOXAZOLE/TRIMETHOPRIM 800MG/160MG D.S. TABLET PO SCH ×2 (13:08→21:21)
[2023-07-10] MEDS: THIAMINE HCL 100 MG TABLET (FP) PO SCH (21:01)
[2023-07-10] MEDS: MELATONIN 5 MG TABLETS PO SCH (21:01)
[2023-07-10] MEDS: DOCUSATE SODIUM 100 MG CAPSULE (FP) PO SCH (21:22)
[2023-07-11 06:35] VITALS: BP 118/70; PULSE 52; RESP 20; TEMP 98.4
[2023-07-11] MEDS: SULFAMETHOXAZOLE/TRIMETHOPRIM 800MG/160MG D.S. TABLET PO SCH (10:07)
[2023-07-11] MEDS: DOCUSATE SODIUM 100 MG CAPSULE (FP) PO SCH (10:07)
[2023-07-11] MEDS: PRENATAL VITAMINS W/ FOLIC ACID TABLET (FP) PO SCH (10:07)
[2023-07-12] MEDS ORDERED: methaDONE HCL 40 MG DISPERSABLE TABLET PO SCH (06:00)
== END 2023-07-11 14:44 | disposition left against medical advice (07) | DRG 770 ==
LOC: YASAS 16:34 → Y3E 23:56
PROVIDERS: ADMIT Allergy & Immunology; ATTEND Psychiatry & Neurology Pain Medicine
PROC: HZ42ZZZ Group Counseling for Substance Abuse Treatment, Cognitive-Behavioral (ICD-10-PCS; principal; 2023-07-08)
DX: F14.20 Cocaine dependence, uncomplicated (principal); F11.20 Opioid dependence, uncomplicated; F12.20 Cannabis dependence, uncomplicated; F17.210 Nicotine dependence, cigarettes, uncomplicated; K40.90 Unilateral inguinal hernia, without obstruction or gangrene, not specified as recurrent; N41.9 Inflammatory disease of prostate, unspecified
CPT/HCPCS: 36415; 80053; 81003; 82962; 85027; 86780; 87635